=== PATIENT | female | born 1985 | race Caucasian/White ===

== ENCOUNTER 2019-03-02 17:22 | Emergency (ER) | payer BC ==
[~2019-03-02] VITALS: Ht 180.3 cm; Wt 113.4 kg
--- OUTSIDE RECORDS SUMMARY | ~2019-03-02 | XMS | Encounter Summary ---
Demographics + + + | Address | [address] | | | [place] [address] | + + + | Home Phone | | + + + | Preferred Language | Unknown | + + + | Marital Status | Single | + + + | Roman Catholic Affiliation | NRP | + + + | Race | White | + + + | Ethnic Group | Not or | + + + Author + + + | Author | [facility] | + + + | Organization | [facility] | + + + | Address | Unknown | + + + | Phone | Unavailable | + + + Support + + +---------+ + | Name | Relationship | Address | Phone | + + +---------+ + | Lester Wells | ECON | Unknown | | + + +---------+ + Care Team Providers + +------+ + | Care Glory Hole Tender Name | Role | Phone | + +------+ + | Sanaz Carney PA-C | PCP | | + +------+ + Encounter Details +--------+ + + + + | Date | Type | Department | Care Team | Description | +--------+ + + + + | 02/15/ | Procedure | [facility] | | | | 2018 | Pass | OP LOC [address] [facility] | | | | | | [place], [place] | | | | | | [address] | | | +--------+ + + + + Social History + +-------+ +--------+------+ | Tobacco Use | Types | Packs/Day | Years | Date | | | | | Used | | + +-------+ +--------+------+ | Never Smoker | | | | | + +-------+ +--------+------+ + +---+---+---+ | Smokeless Tobacco: | | | | | Never Used | | | | + +---+---+---+ + + +---------+ + | Alcohol Use | Drinks/Week | oz/Week | Comments | + + +---------+ + | Never | | | | + + +---------+ + + + + + | Alcohol Habits | Answer | Date Recorded | + + + + | How often do you have a drink containing | Never | 12/29/2018 | | alcohol? | | | + + + + | How many drinks containing alcohol do you | Not asked | | | have on a typical day when you are | | | | drinking? | | | + + + + | How often do you have six or more drinks on | Not asked | | | one occasion? | | | + + + + + + + | Sex Assigned at | Date Recorded | | | | + + + | Not on file | | + + + + + + + | Job Start Date | Occupation | Industry | + + + + | Not on file | Not on file | Not on file | + + + + + + + + | Travel History | Travel Start | Travel End | + + + + + + | No recent travel history available. | + + documented as of this encounter Plan of Treatment +--------+---------+ + + + | Date | Type | Specialty | Care Team | Description | +--------+---------+ + + + | 03/15/ | Office | Neurological Surgery | Sukumar Almanza, | | | 2018 | Visit | | [place] | | | | | | [place], [place] | | | | | | [address] | | | | | | | | +--------+---------+ + + + documented as of this encounter Visit Diagnoses Not on filedocumented in this encounter"
--- OUTSIDE RECORDS SUMMARY | ~2019-03-02 | XMS | Encounter Summary ---
Demographics + + + | Address | [address] | | | [place] [address] | + + + | Home Phone | | + + + | Preferred Language | Unknown | + + + | Marital Status | Single | + + + | Holiness Affiliation | NRP | + + + [...] Team Providers + +------+ + | Care Litigation Partner Name | Role | Phone | + +------+ + | No Pcp Per Patient | PCP | Unavailable | + +------+ + Encounter Details +--------+ + + + + | Date | Type | Department | Care Team | Description | +--------+ + + + + | 02/11/ | Document-Sc | [facility] | Ethan Roach MD | | | 2019 | anned | [facility] [address] | [address] | | | | | [address] | [address] | | | | | [address] | [place] [address] | | | | | [place], [place] | [phone] | | | | | [address] | | | | | | [phone] | | | +--------+ + + + [...] [address] | | | | | | [place], [place] | | | | | | [address] | | | | | | | | +--------+---------+ + + + documented as of this encounter Procedures + +--------+ + + + | Procedure Name | Priori | Date/Time | Associated Diagnosis | Comments | | | ty | | | | + +--------+ + + + | LAB REPORTS | | 02/05/2019 | | Results for this | | | | 12:00 AM | | procedure are in the | | | | PDT | | results section. | + +--------+ + + + documented in this encounter Results LAB REPORTS (02/05/2019 12:00 AM PDT) + + + | Narrative | Performed At | + + + | | | + + + documented in this encounter Visit Diagnoses Not on filedocumented in this encounter"
--- OUTSIDE RECORDS SUMMARY | ~2019-03-02 | XMS | Encounter Summary ---
Demographics + + + | Address | [address] | | | [place] [address] | + + + | Home Phone | | + + + | Preferred Language | Unknown | + + + | Marital Status | Single | + + + | Faith Affiliation | NRP | + + + [...] Team Providers + +------+ + | Care Funeral Pre Arrangement Specialist Name | Role | Phone | + +------+ + | No Pcp Per Patient | PCP | Unavailable | + +------+ + Reason for Referral Consult to [place] (Routine) + +--------+ + + + + | Status | Reason | Specialty | Diagnoses / | Referred By | Referred To | | | | | Procedures | Contact | Contact | + +--------+ + + + + | Authorized | | Neurological | Diagnoses | Ethan Roach | [facility] | | | | Surgery | Lumbar | [facility] [address] | Neurosurgery | | | | | radiculopath | [address] | [address] | | | | | y, right | [address] | [address] | | | | | Left lumbar | [facility] [address] | | | | | radiculopath | [place] [address] | [place], [place] | | | | | y Lumbar | Phone: | [phone] | | | | | degenerative | [phone] | Phone: | | | | | disc | | [phone] | | | | | disease | | Fax: | | | | | Spinal | | [phone] | | | | | stenosis of | | | | | | | lumbar | | | | | | | region | | | | | | | without | | | | | | | neurogenic | | | | | | | claudication | | | | | | | Lumbar | | | | | | | disc | | | | | | | herniation | | | | | | | S/P lumbar | | | | | | | discectomy | | | | | | | Procedures | | | | | | | REQUEST TO | | | | | | | SURGERY | | | | | | | ELECTROTHERAPIST | | | | | | | LA LUMBAR | | | | | | | SPINE | | | | | | | FUSION,ANTER | | | | | | | APPRCH LA | | | | | | | INSERT | | | | | | | INTERBODY | | | | | | | BIOMECH | | | | | | | DEV,TO | | | | | | | INTERVERTEBR | | | | | | | AL DISC | | | | | | | SPACE LA | | | | | | | LAMINEC/FACE | | | | | | | TECT/FORAMIN | | | | | | | ,LUMBAR LA | | | | | | | REDO EXCIS | | | | | | | LUMBAR DISK | | | | | | | LA SPIN | | | | | | | BONE | | | | | | | ALLOGRFT | | | | | | | MORSELIZED | | | + +--------+ + + + + Reason for Visit + + + | Reason | Comments | + + + | Follow-up visit | lumbar | + + + Consultation (Routine) +--------+--------+ + + + + | Status | Reason | Specialty | Diagnoses / | Referred By | Referred To | | | | | Procedures | Contact | Contact | +--------+--------+ + + + + | Closed | | Neurological | Diagnoses | Jayjay | [facility] | | | | Surgery | | Merrick Duncan, | Neurosurgery | | | | | Intervertebr | [address] | [address] | | | | | al disc | [facility] | [address] | | | | | disorders | & Fractur | [address] | | | | | with | [address] | [place] | | | | | radiculopath | [address] | [address] | | | | | y, lumbar | [place], | Phone: | | | | | region | [place] [address] | [phone] | | | | | Spondylosis | Phone: | Fax: | | | | | without | [phone] | [phone] | | | | | myelopathy | Fax: | | | | | | or | [phone] | | | | | | radiculopath | | | | | | | y, lumbar | | | | | | | region | | | +--------+--------+ + + + + Encounter Details +--------+---------+ + + + | Date | Type | Department | Care Team | Description | +--------+---------+ + + + | 12/29/ | Office | [facility] | Ethan Roach MD | Lumbar | | 2019 | Visit | [facility]surgery [facility] | [address] | radiculopathy, right | | | | [address] | [address] | (Primary Dx); Left | | | | [address] | [place] [address] | lumbar | | | | [place], [place] | [phone] | radiculopathy; | | | | [address] | | Lumbar degenerative | | | | [phone] | | disc disease; Spinal | | | | | | stenosis of lumbar | | | | | | region without | | | | | | neurogenic | | | | | | claudication; Lumbar | | | | | | disc herniation; | | | | | | S/P lumbar | | | | | | discectomy x 2 | +--------+---------+ + + + Social History + +-------+ [...] + + documented as of this encounter Last Filed Vital Signs + + + + + | Vital Sign | Reading | Time Taken | Comments | + + + + + | Blood Pressure | 145/84 | 12/29/2018 11:21 AM | | | | | PDT | | + + + + + | Pulse | 74 | 12/29/2018 11:21 AM | | | | | PDT | | + + + + + | Temperature | 36.9 C (98.4 F) | 12/29/2018 11:21 AM | | | | | PDT | | + + + + + | Respiratory Rate | - | - | | + + + + + | Oxygen Saturation | 98% | 12/29/2018 11:21 AM | | | | | PDT | | + + + + + | Inhaled Oxygen | - | - | | | Concentration | | | | + + + + + | Weight | 114 kg (251 lb 5.2 | 12/29/2018 11:21 AM | | | | oz) | PDT | | + + + + + | Height | 182.9 cm (6') | 12/29/2018 11:21 AM | | | | | PDT | | + + + + + | Body Mass Index | 34.09 | 12/29/2018 11:21 AM | | | | | PDT | | + + + + + documented in this encounter Progress Notes Ethan Roach MD - 12/29/2018 11:15 AM PDTFormatting of this note might be 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 Ethan Roach MD [facility] [address] [address] NEUROSURGERY HISTORY AND PHYSICAL EXAMINATION CHIEF COMPLAINT: Follow-up visit (lumbar) REFERRING PROVIDER: Ethan Roach MD HISTORY OF PRESENT ILLNESS: The patient is a 33 y.o. female with the complaint of back and bilateral leg pain symptoms that began in 2014. She had two surgeries fairly soon together for right leg symptoms. Thi s improved her right leg but she still has pain, numbness and weakness since that last opera tion. Over the last year, she has noticed progressive left leg symptoms. The patient descri bes pain down the buttock on the left and back pain. The symptoms have been gradually worsening. She rates the pain as moderate. The symptoms ar e continuous. She describes the pain as shooting, crushing, aching and throbbing. The patient describes leg symptoms that occur on both sides but worse on the left. The leg symptoms account for 50% of her symptoms. The leg symptoms are constant, and the symptoms tr noah from the back to the posterolateral leg and down to the foot. The patient also describe s numbness of the legs, weakness of the legs and foot drop. The patient does not report any change in bowel or bladder function recently. Her symptoms improve with rest, changing positions and kneeling. Her symptoms worsen with sitting, running and twisting. She has tried PT, NSAIDS and Injections. The patient is not currently taking opioids. These measures used to work but are now failing. PAST MEDICAL HISTORY: Past Medical History: Diagnosis Date BP (high blood pressure) PAST SURGICAL HISTORY: Past Surgical History Procedure Laterality Date Lumbar discectomy 06/2015 L5-S1 [facility] Back surgery CURRENT MEDICATIONS: Current Outpatient Medications Medication Sig buPROPion SR 150 mg oral tablet sustained-release 12 hr Take 1 tablet by mouth once raul ly. ergocalciferol 50,000 unit oral capsule Take 50,000 Units by mouth every seven days. lidocaine-prilocaine 2.5-2.5 % topical cream phentermine 37.5 mg oral capsule Take 1 capsule by mouth once daily. topiramate 25 mg oral tablet Take 25 mg by mouth once daily. No current facility-administered medications for this visit. ALLERGIES: Allergies Allergen Reactions Sulfa (Sulfonamide Antibiotics) Rash SOCIAL HISTORY: Social History Tobacco Use Smoking status: Never Smoker Smokeless tobacco: Never Used Substance Use Topics Alcohol use: Never Frequency: Never FAMILY HISTORY: Family History Problem Relation Hypertension Father Heart Disease Father REVIEW OF SYSTEMS: Constitutional: Positive for malaise/fatigue. HENT: Negative. Eyes: Wear glasses Respiratory: Negative. Cardiovascular: Negative. Gastrointestinal: Negative. Genitourinary: Negative. Musculoskeletal: Negative. Skin: Negative. Neurological: Positive for tingling and headaches. Numbness, muscle twitching, muscle shrinkage, problems walking Endo/Heme/Allergies: Negative. Psychiatric/Behavioral: Positive for depression. PHYSICAL EXAMINATION: Blood pressure 145/84, pulse 74, temperature 36.9 C (98.4 F), height 1.829 m (6'), weig ht 114 kg (251 lb 5.2 oz), SpO2 98 %. Body mass index is 34.09 kg/m. GENERAL: Yolanda James is in no acute distress with unlabored respirations. The patient julian s appear uncomfortable throughout the exam today. HEENT: Head: Normocephalic/atraumatic with no areas of recent trauma. Eyes: Normal sclerae without icterus. Ears: No drainage or tenderness. Nasopharnyx: Clear without drainage. Oropharnyx: Clear without erythema. NECK (ANTERIOR): Supple and without palpable masses. CHEST: Clear to ausculation without crackles or wheeze. HEART: Regular rate and rhythm without murmurs. ABDOMEN: Soft, non-tender, non-distended, and without palpable masses. The patient is not o bese. SPINE: There is no tenderness of there cervical or thoracic spine. The lumbar spine shows there is tenderness in the midline of the L4-S1 levels. To palpation , there is no significant myofascial tenderness. Her midline scar is well healed. There is no significant pain to provacative testing of the SI joint. There is no major deformity noted. EXTREMITIES: No cyanosis, clubbing, or edema. Distal pulses are palpable. NEUROLOGICAL EXAM: MENTAL STATUS: The patient is awake, alert, and oriented. She follows simple and complex commands. Her speech is fluent, she comprehends speech well, and she repeats well. She has no apparent deficits with short or termite control service representative memory. CRANIAL NERVES: II: Acuity is intact. Pearson are full to confrontation. III, IV, : The pupils are reactive. Extraocular movements are intact. No ptosis is note d. V: Facial sensation is intact and symmetric. VII: Facial movements are symmetric. VIII: Hearing is intact bilaterally. IX, X: The uvula and palate move appropriately. XI: Shrug is equal bilaterally. XII: Tongue protrusion is midline. MOTOR EXAM: (5 IS NORMAL) * Indicates pain limited MUSCLE/ MOVEMENT: RIGHT LEFT Deltoids 5 5 Biceps 5 5 Triceps 5 5 Wrist Flexion 5 5 Wrist Extension 5 5 Median Intrinsics 5 5 Ulnar Intrinsics 5 5 Outpatient Receptionist Strength 5 5 Hip Flexion 5 5 Hip Extension 5 5 Knee Flexion 5 5 Knee Extension 5 5 Dorsiflexion 5 4 Extensor Hallicus Longus 5 4 Plantarflexion 4 5 SENSORY EXAM: Sensory exam shows diminished sensation to light touch over the lateral lower leg and dorsa l and plantar foot. REFLEXES: (2 OR 2+ IS NORMAL) REFLEX: RIGHT LEFT BICEPS 2 2 BRACHIORADIALIS 2 2 TRICEPS 2 2 PATELLAR 2 2 ACHILLES 1 2 HARRINGTON'S Absent Absent PLANTAR Down Down GAIT: Gait is steady. TEST AND RADIOGRAPHIC REVIEW: The patient's imaging was reviewed in detail with the patient today during the visit. The M RI from 2019 shows L4-5 stenosis from a disc herniation eccentric to the left. At L5-S1, th ere are postoperative changes but S1 remains compressed. Severe DDD is present Lumbar x-rays show severe degenerative disc disease at L5-S1. ASSESSMENT: NEUROSURGICAL DIAGNOSES: 1. Lumbar radiculopathy, right 2. Left lumbar radiculopathy 3. Lumbar degenerative disc disease 4. Spinal stenosis of lumbar region without neurogenic claudication 5. Lumbar disc herniation 6. S/P lumbar discectomy x 2 GENERAL DIAGNOSES: Past Medical History: Diagnosis Date BP (high blood pressure) PLAN: Yolanda James presented today, and we went over in great detail her neurologic problems. The patient has failed prior surgery at L5-S1 with continued S1 radiculopathy. She also mcgraw s newer left radiculopathy from L4-5. The patient has progressive symptoms despite non-opera tive measures. I had a lengthy discussion with the patient about her options for care including surgical a nd non-surgical options. In discussing the surgical options, we discussed in detail the patient's options for an ALI F at L5-S1 with anterior instrumentation with a L4-5 decompression on the left and L5-S1 red o decompression on the right. The indication for fusion is two prior operations and severe DDD at L5-S1. The patient understands that in most instances the recovery from surgery can be lengthy and sometimes difficult. We discussed the risks, alternatives, and benefits to surgical intervention with Ms. James. These risks included but were not limited to , stroke, heart attack, numbness, weakne ss, paralysis, failure of fusion, failure of hardware, subsidence, adjacent segment degenera tion, cerebrospinal fluid leak, bleeding, infection, injury to surrounding tissues and organ s, injury from positioning, injury to the nerves, difficulty with breathing, difficulty with swallowing, difficulty with voice change, and need for additional surgery. Surgical options were discussed and the technique to be employed was described in detail to her. All her questions were answered. We discussed that the goal of the surgery is to prevent progression of her disease, but it is not considered a cure. We also discussed that although some patients may obtain 100% sym ptom relief, it is realistic to anticipate that some symptoms will continue postoperatively despite a successful surgery. We also discussed that there is no guarantee that surgery will provide improvement in her c ondition, and indeed may even worsen the symptoms. We also discussed that in the course of the procedure the operative plan may be altered to include more, less, or different levels d epending upon findings in order to provide her with the best possible outcome. I am prescribing a brace before surgery to improve her stability now to support her weak mu scles and to reduce pain by restricting mobility. The patient would like to be considered for surgery as discussed and would like us to seek authorization and clearance for the operation.. 12/29/2018 12:20 PM Janis Garcia MA - 10/2018 11:15 AM PDTReview of Systems Constitutional: Positive for malaise/fatigue. HENT: Negative. Eyes: Wear glasses Respiratory: Negative. Cardiovascular: Negative. Gastrointestinal: Negative. Genitourinary: Negative. Musculoskeletal: Negative. Skin: Negative. Neurological: Positive for tingling and headaches. Numbness, muscle twitching, muscle shrinkage, problems walking Endo/Heme/Allergies: Negative. Psychiatric/Behavioral: Positive for depression. documented in this enco unter Plan of Treatment +--------+---------+ + + + | Date | Type | Specialty | Care Team | Description | +--------+---------+ + + + | 03/15/ | Office | Neurological Surgery | Sukumar Almanza, | | | 2018 | Visit | | [place] [address] | | | | | | [place], [place] | | | | | | [address] | | | | | | | | +--------+---------+ + + + documented as of this encounter Procedures + +--------+ + + + | Procedure Name | Priori | Date/Time | Associated Diagnosis | Comments | | | ty | | | | + +--------+ + + + | OUTSIDE CARDIOLOGY | | 01/27/2019 | | Results for this | | | | 12:00 AM | | procedure are in the | | | | PDT | | results section. | + +--------+ + + + documented in this encounter Results OUTSIDE CARDIOLOGY (01/27/2019 12:00 AM PDT) + + + | Narrative | Performed At | + + + | | | + + + documented in this encounter Visit Diagnoses + + | Diagnosis | + + | Lumbar radiculopathy, right - Primary | + + | Left lumbar radiculopathy Thoracic or lumbosacral neuritis or radiculitis, | | unspecified | + + | Lumbar degenerative disc disease Degeneration of lumbar or lumbosacral intervertebral | | disc | + + | Spinal stenosis of lumbar region without neurogenic claudication Spinal stenosis, | | lumbar region, without neurogenic claudication | + + | Lumbar disc herniation Displacement of lumbar intervertebral disc without myelopathy | + + | S/P lumbar discectomy x 2 Other postprocedural status | + + documented in this encounter"
--- OUTSIDE RECORDS SUMMARY | ~2019-03-02 | XMS | Encounter Summary ---
Demographics + + + | Address | [address] | | | [place] [address] | + + + | Home Phone | | + + + | Preferred Language | Unknown | + + + | Marital Status | Single | + + + | Mosque Affiliation | NRP | + + + [...] Team Providers + +------+ + | Care Advertising Dispatch Clerks Supervisor Name | Role | Phone | + +------+ + PCP | Unavailable | + +------+ + Encounter Details +--------+ + + + + | Date | Type | Department | Care Team | Description | +--------+ + + + + | 12/22/ | Mobile Paramedical Examiner | [facility] | Ginna Marcos | Back pain, | | 2019 | | [facility] | [place] [address] | unspecified back | | | | [address] | [address] | location, | | | | [address] | [place] [address] | unspecified back | | | | [place], [place] | [phone] | pain laterality, | | | | [address] | | unspecified | | | | [phone] | | chronicity (Primary | | | | | | Dx) | +--------+ + + + + Social History + +-------+ +--------+------+ | Tobacco Use | Types | Packs/Day | Years | Date | | | | | Used | | + +-------+ +--------+------+ | Never Assessed | | | | | + +-------+ +--------+------+ + + + | Sex Assigned at [...] | | 2018 | Visit | | [facility] [address] | | | | | | [place], [place] | | | | | | [address] | | | | | | | | +--------+---------+ + + + documented as of this encounter Results X-RAY SPINE LUMBOSACRAL 4 VIEWS (12/29/2018 10:57 AM PDT) + + | Specimen | + + | | + + + + + | Narrative | Performed At | + + + | EXAM DESCRIPTION: X-RAY SPINE LUMBOSACRAL 4 VIEWS CLINICAL | [facility] | | HISTORY: Back pain. COMPARISON: None. TECHNIQUE: AP view. | RADIOLOGY VOICE | | Three lateral views obtained in neutral, flexion and extension. | RECOGNITION | | FINDINGS: Alignment is normal. No instability. No fracture line is | | | seen. Vertebral body heights are normal. There is moderate to severe | | | loss of intervertebral disc height at L5-S1. There is facet | | | arthropathy at L4-5 and L5-S1. IMPRESSION: 1. No fracture, | | | subluxation or instability. 2. Degenerative disc disease and facet | | | arthropathy predominantly at L5-S1. Signed By: Conner Olvera | | | On 12/29/2018 11:26:57 | | + + + + ---------+ | Procedure Note | + ---------+ | Service Account, Radiant Res In Interface - 12/29/2018 11:30 AM PDT EXAM | | DESCRIPTION:X-RAY SPINE LUMBOSACRAL 4 VIEWS CLINICAL HISTORY:Back pain. COMPARISON:None. | | TECHNIQUE:AP view. Three lateral views obtained in neutral, flexion and extension. | | FINDINGS:Alignment is normal. No instability. No fracture line is seen. Vertebral body | | heights are normal.There is moderate to severe loss of intervertebral disc height at | | L5-S1. There is facet arthropathyat L4-5 and L5-S1. IMPRESSION:1. No fracture, | | subluxation or instability.2. Degenerative disc disease and facet arthropathy | | predominantly at L5-S1. Signed By: Conner Olvera On 12/29/2018 11:26:57 | | | |TECHNIQUE: | |AP view. Three lateral views obtained in neutral, flexion and extension. | | | |FINDINGS: | |Alignment is normal. No instability. No fracture line is seen. Vertebral body heights are n ormal. | |There is moderate to severe loss of intervertebral disc height at L5-S1. There is facet art hropathy | |at L4-5 and L5-S1. | | | |IMPRESSION: | |1. No fracture, subluxation or instability. | |2. Degenerative disc disease and facet arthropathy predominantly at L5-S1. | | | | | |Signed By: Conner Olvera On 12/29/2018 11:26:57 | + ---------+ + + + + + | Performing | Address | City/State/Zipcode | Phone Number | | Organization | | | | + + + + + | [facility] | [address] | [place] [address] | [phone] | | VOICE RECOGNITION | | | | + + + + + documented in this encounter Visit Diagnoses + + | Diagnosis | + + | Back pain, unspecified back location, unspecified back pain laterality, unspecified | | chronicity - Primary | + + documented in this encounter"
--- OUTSIDE RECORDS SUMMARY | ~2019-03-02 | XMS | Encounter Summary ---
Demographics + + + | Address | [address] | | | [place] [address] | + + + | Home Phone | | + + + | Preferred Language | Unknown | + + + | Marital Status | Single | + + + | Denominational Affiliation | NRP | + + + [...] Team Providers + +------+ + | Care Rug Underlay Machine Operator Name | Role | Phone | + +------+ + | Sanaz Carney PA-C | PCP | | + +------+ + Encounter Details +--------+ + + + + | Date | Type | Department | Care Team | Description | +--------+ + + + + | 02/21/ | MyChart | [facility] | Ethan Roach MD | RE: Nerve pain | | 2019 | Encounter | [facility] | [address] | | | | | [address] | [address] | | | | | [address] | [place] [address] | | | | | [place], [place] | [phone] | | | | | [address] | | | | | | [phone] | | | +--------+ + + + [...] + + documented as of this encounter Functional Status + + + + | Functional Status | Response | Date of Assessment | + + + + | Because of a physical, mental, or emotional | No | 02/17/2019 | | condition, do you have serious difficulty | | | | doing errands alone such as visiting the | | | | doctor? | | | + + + + + + + + | Cognitive Status | Response | Date of Assessment | + + + + | Because of a physical, mental, or emotional | No | 02/17/2019 | | condition, do you have serious difficulty | | | | concentrating, remembering, or making | | | | decisions? (5 years old or older) | | | + + + + documented as of this encounter Plan of Treatment +--------+---------+ + + + | Date | Type | Specialty | Care Team | Description | +--------+---------+ + + + | 03/15/ | Office | Neurological Surgery | Sukumar Almanza, | | | 2018 | Visit | | [address] | | | | | | [place], [place] | | | | | | [address] | | | | | | | | +--------+---------+ + + + documented as of this encounter Visit Diagnoses + + | Diagnosis | + + | S/P lumbar fusion - Primary Arthrodesis status | + + documented in this encounter"
--- OUTSIDE RECORDS SUMMARY | ~2019-03-02 | XMS | Encounter Summary ---
Demographics + + + | Address | [address] | | | [place] [address] | + + + | Home Phone | | + + + | Preferred Language | Unknown | + + + | Marital Status | Single | + + + | Adventist Affiliation | NRP | + + + [...] Team Providers + +------+ + | Care Handbag Stitcher Name | Role | Phone | + +------+ + PCP | Unavailable | + +------+ + Encounter Details +--------+ + + + + | Date | Type | Department | Care Team | Description | +--------+ + + + + | 12/04/ | Document-Sc | [facility] | Ethan Roach MD | | | 2019 | anned | [facility] | [address] | | | | | [address] | [address] | | | | | [address] | [place] [address] | | | | | [place], [place] | [phone] | | | | | [address] | | | | | | [phone] | | | +--------+ + + + [...] | | 2018 | Visit | | [facility] [address] | | | | | | [place], [place] | | | | | | [address] | | | | | | | | +--------+---------+ + + + documented as of this encounter Visit Diagnoses Not on filedocumented in this encounter"
--- OUTSIDE RECORDS SUMMARY | ~2019-03-02 | XMS | Encounter Summary ---
Demographics + + + | Address | [address] | | | [place] [address] | + + + | Home Phone | | + + + | Preferred Language | Unknown | + + + | Marital Status | Single | + + + | Bahai Affiliation | NRP | + + + [...] Team Providers + +------+ + | Care Program Evaluation Consultant Name | Role | Phone | + +------+ + PCP | Unavailable | + +------+ + Encounter Details +--------+ + + + + | Date | Type | Department | Care Team | Description | +--------+ + + + + | 11/25/ | Document-Sc | [facility] | Ethan Roach MD | | | 2019 | anned | [facility] | [address] | | | | | [address] | [address] | | | | | [address] | [place] [address] | | | | | [place], [place] | [phone] | | | | | [address] | | | | | | [phone] | | | +--------+ + + + [...] [address] | | | | | | [place], [place] | | | | | | [address] | | | | | | | | +--------+---------+ + + + documented as of this encounter Visit Diagnoses Not on filedocumented in this encounter"
--- OUTSIDE RECORDS SUMMARY | ~2019-03-02 | XMS | Encounter Summary ---
Demographics + + + | Address | [address] | | | [place] [address] | + + + | Home Phone | | + + + | Preferred Language | Unknown | + + + | Marital Status | Single | + + + | Quaker Affiliation | NRP | + + + [...] Team Providers + +------+ + | Care Refueling Rampman Name | Role | Phone | + +------+ + PCP | Unavailable | + +------+ + Encounter Details +--------+ + + + + | Date | Type | Department | Care Team | Description | +--------+ + + + + | 12/22/ | Electronics Installer | [facility] | Ginna Marcos | Back pain, | | 2019 | | [facility] | [address] [place] | unspecified back | | | | [address] | [address] | location, | | | | [address] | [place] [address] | unspecified back | | | | [place], [place] | [phone] | pain laterality, | | | | [address] | | unspecified | | | | [phone] | | chronicity (Primary | | | [...] [address] | | | | | | [place], [place] | | | | | | [address] | | | | | | | [...] RADIOLOGY | [address] | [place] [address] | [phone] | | VOICE RECOGNITION | | | | + + + + + documented in this encounter Visit Diagnoses + + | Diagnosis | + + | Back pain, unspecified back location, unspecified back pain laterality, unspecified | | chronicity - Primary | + + documented in this encounter"
--- OUTSIDE RECORDS SUMMARY | ~2019-03-02 | XMS | Encounter Summary ---
Demographics + + + | Address | [address] | | | [place] [address] | + + + | Home Phone | | + + + | Preferred Language | Unknown | + + + | Marital Status | Single | + + + | Buddhism Affiliation | NRP | + + + [...] Team Providers + +------+ + | Care Sculpture Instructor Name | Role | Phone | + +------+ + | Sanaz Carney PA-C | PCP | | + +------+ + Reason for Visit AUTH/CERT +--------+--------+ + + + + | Status | Reason | Specialty | Diagnoses / | Referred By | Referred To | | | | | Procedures | Contact | Contact | +--------+--------+ + + + + | | | | | | | +--------+--------+ + + + + Encounter Details +--------+ + + + + | Date | Type | Department | Care Team | Description | +--------+ + + + + | 02/15/ | Anesthesia | [facility] | [place], | | | 2018 | Event | OP LOC [address] | [place] [address] | | | | | [address] [place], [place] | [place] [address] | | | | | [address] | | | +--------+ + + + + Anesthesia Record + + + + + | Procedure Name | Responsible | Anesthesia Start | Anesthesia Stop Time | | | Anesthesiologist | Time | | + + + + + | ANTERIOR L5-S1 | Josefa Wynn MD | 02/15/19 0734 | 02/15/19 1151 | | INTERBODY | | | | | FUSION/LEFT L4-5, | | | | | RIGHT L5-S1 | | | | | DECOMPRESSIONS (N/A | | | | | Abdomen) | | | | + + + + + +----+---+ + + | Da | T | Event | Comment | | te | i | | | | | m | | | | | e | | | +----+---+ + + | 09 | 0 | Pt. Check | Prior to anesthesia start, pt. Identified, examined, chart | | /2 | 7 | | reviewed, PARQ held, anesthetic plan made or approved by | | 3/ | 0 | | attending anesthesiologist. NPO status confirmed as appropriate | | 20 | 7 | | for procedure Preoperative evaluation: unchanged | | 19 | | | | +----+---+ + + | | 0 | An Start | | | | 7 | Data | | | | 1 | | | | | 1 | | | +----+---+ + + | | 0 | Eq Check | Anesthesia machine checked Equipment verified | | | 7 | | | | | 2 | | | | | 0 | | | +----+---+ + + | | 0 | An Start | | | | 7 | | | | | 3 | | | | | 4 | | | +----+---+ + + | | 0 | ETT | | | | 7 | | | | | 4 | | | | | 0 | | | +----+---+ + + | | 0 | Ready | | | | 7 | | | | | 4 | | | | | 1 | | | +----+---+ + + | | 0 | Abx | | | | 7 | Administere | | | | 5 | d | | | | 6 | | | +----+---+ + + | | 0 | Preprocedur | Pt ID confirmed, informed consent obtained, insertion site | | | 8 | e Checklist | marked, equipment available | | | 0 | | | | | 5 | | | +----+---+ + + | | 0 | Incision | | | | 8 | | | | | 0 | | | | | 6 | | | +----+---+ + + | | 1 | Surgery end | | | | 1 | | | | | 4 | | | | | 1 | | | +----+---+ + + | | 1 | An Extubate | Neuromuscular function Intact. Pharynx suctioned. Patient obeys | | | 1 | | commands. Adequate pulmonary mechanics. | | | 4 | | | | | 6 | | | +----+---+ + + | | 1 | an stop | | | | 1 | data | | | | 5 | | | | | 1 | | | +----+---+ + + | | 1 | Anesthesia | | | | 1 | End | | | | 5 | | | | | 1 | | | +----+---+ + + | | 1 | PACU Rpt | | | | 1 | Given | | | | 5 | | | | | 2 | | | +----+---+ + + | | 1 | Post-Op | | | | 3 | Page | | | | 3 | | | | | 5 | | | +----+---+ + + +------+ | Meds | +------+ + + + | Name | Total | + + + | metoclopramide | 10 mg | + + + | midazolam 5mg/mL | 5 mg | + + + | fentaNYL | 175 mcg | + + + | lidocaine 2% | 4 mL | + + + | propofol | 200 mg | + + + | rocuronium | 50 mg | + + + | dexamethasone | 4 mg | + + + | ondansetron | 4 mg | + + + | ceFAZolin IV 3 gram in 0.9% | 3 g | | sodium chloride | | + + + | lactated ringers IV | 1,900 mL | + + + + + | Name | + + | O2 FR Avance (Total Liters) | + + | N2O FR Avance (l/min) | + + | Air FR Avance (l/min) | + + | Insp Wayne | + + | Et Wayne | + + | Insp Sevo | + + | Et Sevo | + + | EtN2O % | + + | Insp N2O % | + + + + | No blood administrations on file. | + + +--------+ + + + | Type | Details | Placement | Removal | +--------+ + + + | Incisi | 02/15/19; Dr. Roach ; (midline); | 02/15/19 0000 by | | | on | Anterior, Midline; abdomen | Yolanda Herrera RN | | +--------+ + + + | Incisi | 02/15/19; Dr. Roach ; Right; Lower, | 02/15/19 0000 by | | | on | Posterior; back | Yolanda Herrera RN | | +--------+ + + + | Urethr | 02/15/19; Isaiah Feliz RN ; 1; | 02/15/19 0000 by | 02/15/19 1155 by | | al | [place]; 16 Fr.; 10 mL; 02/15/19; | Yloanda Herrera RN | Yolanda Herrera RN | | Cathet | 1155 | | | | er | | | | +--------+ + + + | Incisi | 02/15/19; Dr. Roach; Left; | 02/15/19 0000 by | 02/15/19 1155 by | | on | Posterior, Lower; back; 02/15/19; | Yolanda Herrera RN | Yolanda Herrera RN | | | 1155 | | | +--------+ + + + | Periph | 02/15/19; 0658; Left; Hand; 18 g; | 02/15/19 0658 by | 02/16/19 2100 by | | eral | Positive; 02/16/19; 2099; Other | Lyn Dean, | Sara Roque RN | | IV | (Comment) (pt request, other IV | RN | | | | present) | | | +--------+ + + + | Periph | 02/15/19; 0700; Right; Hand; 20 | 02/15/19 0700 by | 02/17/19 1535 by | | eral | g; Positive; 02/17/19; 1535; Per | Lyn Dean, | John Martin RN | | IV | order | RN | | +--------+ + + + | ETT | 02/15/19; 0740 (created via | 02/15/19 0740 by | 02/15/19 1146 by | | | procedure documentation); 7; | Josefa Wynn MD | Josefa Wynn MD | | | Oral; Cuffed; 02/15/19; 1146 | | | +--------+ + + + documented in this encounter Social History + +-------+ +--------+------+ | Tobacco [...] | 2018 | Visit | | [facility] [address] | | | | | | [place], [place] | | | | | | [address] | | | | | | | | +--------+---------+ + + + documented as of this encounter Procedures + +--------+ + + + | Procedure Name | Priori | Date/Time | Associated Diagnosis | Comments | | | ty | | | | + +--------+ + + + | ANE ETT | Routin | 02/15/2019 | | | | | e | 7:54 AM | | | | | | PDT | | | + +--------+ + + + +---+--------+ | | | | | Proced | | | ure | | | Note - | | | | | | Wynn | | | , Josefa | | | Hang, | | | MD - | | | | | | 2018 | | | 7:54 | | | AM PDT | | | | | | AIRWAY | | | | | | MANAGE | | | MENT - | | | | | | ETTTim | | | e of | | | Placem | | | ent: | | | | | | 019 | | | 7:40 | | | AMIntu | | | bation | | | | | | Reason | | | : For | | | surgic | | | al | | | proced | | | urePos | | | itioni | | | ng: | | | Supine | | | Locati | | | on | | | Perfor | | | med:OR | | | | | | OXYGEN | | | ATIONP | | | atient | | | was | | | preoxy | | | genate | | | dGrade | | | : | | | Grade | | | 1 - | | | Ventil | | | ated | | | by | | | mask | | | Induct | | | ion:Ro | | | utine, | | | | | | withou | | | t | | | Cricoi | | | d | | | Pressu | | | reINTU | | | BATION | | | ATTEMP | | | T | | | 1Video | | | laryng | | | oscopy | | | : | | | Glides | | | copeIn | | | tubati | | | on | | | Adjunc | | | ts: w/ | | | | | | Stylet | | | Laryng | | | oscopi | | | c | | | View: | | | Grade | | | IETT | | | DETAIL | | | SETT | | | Type:S | | | tandar | | | d, | | | Hi-Lo | | | Cuffed | | | Intuba | | | tion | | | Type: | | | OralCu | | | ff | | | Status | | | : | | | Cuffed | | | Size: | | | 7ETT | | | secure | | | d with | | | | | | adhesi | | | ve | | | tapeDe | | | pth at | | | Lip: | | | 22 cm | | | Airway | | | Leak: | | | | | | NoCONF | | | IRMATI | | | ONNumb | | | er of | | | Attemp | | | ts: | | | 1Atrau | | | matic | | | placem | | | entPos | | | itive | | | for | | | EtCO2: | | | Wavefo | | | rm | | | capnog | | | raphyB | | | reath | | | Sounds | | | : | | | Bilate | | | ral | | | and | | | equalN | | | ARRATI | | | VEAtte | | | nding | | | was | | | physic | | | ally | | | presen | | | t for | | | the | | | critic | | | al | | | portio | | | ns of | | | the | | | proced | | | ure as | | | | | | descri | | | bed in | | | the | | | proced | | | ure | | | noteAt | | | tendin | | | g/Auth | | | orizin | | | g | | | Provid | | | er: | | | Josefa | | | Hang | | | Wynn | | | , | | | MDPerf | | | orming | | | | | | Provid | | | er: | | | Josefa | | | Hang | | | Tianna | | | , MD | +---+--------+ documented in this encounter Visit Diagnoses Not on filedocumented in this encounter Administered Medications + +--------+ +------+------+------+ | Medication Order | MAR | Action | Dose | Rate | Site | | | Action | Date | | | | + +--------+ +------+------+------+ | ceFAZolin IV 3 gram in 0.9% | Given | 02/16/20 | 3 g | | | | sodium chloride 3 g, | | 19 7:56 | | | | | intravenous, PREPROCEDURE ONCE | | AM PDT | | | | | (DISPENSE), 1 dose, Starting Mon | | | | | | | 02/15/19 at 0617, Until Mon | | | | | | | 02/15/19 at 0756 | | | | | | + +--------+ +------+------+------+ +---+---+ | | | +---+---+ + +-------+ +------+---+---+ | dexamethasone (DECADRON) | Given | 02/16/20 | 4 mg | | | | injection intravenous, | | 19 8:57 | | | | | INTRAPROCEDURE PRN, Starting Mon | | AM PDT | | | | | 02/15/19 at 0857, Until Mon | | | | | | | 02/15/19 at 1151 | | | | | | + +-------+ +------+---+---+ +---+---+ | | | +---+---+ + +-------+ +--------+---+---+ | fentaNYL (SUBLIMAZE) injection | Given | 02/16/20 | 25 mcg | | | | intravenous, INTRAPROCEDURE PRN, | | 19 11:36 | | | | | Starting 02/15/19 at 0744, | | AM PDT | | | | | Until 02/15/19 at 1151 | | | | | | + +-------+ +--------+---+---+ +-------+ +---------+---+---+ | Given | 02/16/20 | 50 mcg | | | | | 19 7:44 | | | | | | AM PDT | | | | +-------+ +---------+---+---+ | Given | 02/16/20 | 100 mcg | | | | | 19 7:38 | | | | | | AM PDT | | | | +-------+ +---------+---+---+ +---+---+ | | | +---+---+ + + + +---+---+---+ | lactated ringers IV 10 mL/hr, | given by | 02/16/20 | | | | | intravenous, PROCEDURE | | 19 11:51 | | | | | CONTINUOUS, Starting Fri02/15/19 | anesthes | AM PDT | | | | | at 0630, Until Fri02/15/19 at | iology | | | | | | 1359 | | | | | | + + + +---+---+---+ + + + + +---+ | given by anesthesiology | 02/16/20 | | | | | | 19 8:56 | | | | | | AM PDT | | | | + + + + +---+ | New Bag | 02/16/20 | 10 mL/hr | 10 mL/hr | | | | 19 7:01 | | | | | | AM PDT | | | | + + + + +---+ +---+---+ | | | +---+---+ + +-------+ +------+---+---+ | lidocaine (XYLOCAINE) 20 mg/mL | Given | 02/16/20 | 4 mL | | | | (2 %) injection INTRAPROCEDURE | | 19 7:39 | | | | | PRN, Starting 02/15/19 at | | AM PDT | | | | | 0739, Until Fri02/15/19 at 1151 | | | | | | + +-------+ +------+---+---+ +---+---+ | | | +---+---+ + +-------+ +-------+---+---+ | metoclopramide HCl (REGLAN) | Given | 02/16/20 | 10 mg | | | | injection intravenous, | | 19 7:34 | | | | | INTRAPROCEDURE PRN, Starting Mon | | AM PDT | | | | | 02/15/19 at 0734, Until Mon | | | | | | | 02/15/19 at 1151 | | | | | | + +-------+ +-------+---+---+ +---+---+ | | | +---+---+ + +-------+ +------+---+---+ | midazolam (PF) (VERSED) | Given | 02/16/20 | 1 mg | | | | injection intravenous, | | 19 7:37 | | | | | INTRAPROCEDURE PRN, Starting Mon | | AM PDT | | | | | 02/15/19 at 0734, Until Mon | | | | | | | 02/15/19 at 1151 | | | | | | + +-------+ +------+---+---+ +-------+ +------+---+---+ | Given | 02/16/20 | 4 mg | | | | | 19 7:34 | | | | | | AM PDT | | | | +-------+ +------+---+---+ +---+---+ | | | +---+---+ + +-------+ +------+---+---+ | ondansetron (ZOFRAN) injection | Given | 02/16/20 | 4 mg | | | | intravenous, INTRAPROCEDURE PRN, | | 19 11:30 | | | | | Starting Fri02/15/19 at 1130, | | AM PDT | | | | | Until Fri02/15/19 at 1151 | | | | | | + +-------+ +------+---+---+ +---+---+ | | | +---+---+ + +-------+ +--------+---+---+ | propofol (DIPRIVAN) injection | Given | 02/16/20 | 200 mg | | | | intravenous, INTRAPROCEDURE PRN, | | 19 7:39 | | | | | Starting Fri02/15/19 at 0739, | | AM PDT | | | | | Until Fri02/15/19 at 1151 | | | | | | + +-------+ +--------+---+---+ +---+---+ | | | +---+---+ + +-------+ +-------+---+---+ | Rocuronium injection syrg | Given | 02/16/20 | 20 mg | | | | intravenous, INTRAPROCEDURE PRN, | | 19 8:00 | | | | | Starting Fri02/15/19 at 0739, | | AM PDT | | | | | Until Fri02/15/19 at 1151 | | | | | | + +-------+ +-------+---+---+ +-------+ +-------+---+---+ | Given | 02/16/20 | 30 mg | | | | | 19 7:39 | | | | | | AM PDT | | | | +-------+ +-------+---+---+ +---+---+ | | | +---+---+ documented in this encounter"
--- OUTSIDE RECORDS SUMMARY | ~2019-03-02 | XMS | Encounter Summary ---
Demographics + + + | Address | [address] | | | [place] [address] | + + + | Home Phone | | + + + | Preferred Language | Unknown | + + + | Marital Status | Single | + + + | Taoism Affiliation | NRP | + + + [...] Team Providers + +------+ + | Care Medical Supply Technician Name | Role | Phone | + +------+ + | Sanaz Carney PA-C | PCP | | + +------+ + Encounter Details +--------+ + + + + | Date | Type | Department | Care Team | Description | +--------+ + + + + | 02/15/ | Procedure | [facility] | | | | 2018 | Pass | OP LOC [address] [facility] | | | | | | [place], [place] | | | | | | [address] | | | +--------+ + + + [...] [place] | | | | | | [address] | | | | | | | | +--------+---------+ + + + documented as of this encounter Visit Diagnoses Not on filedocumented in this encounter"
--- OUTSIDE RECORDS SUMMARY | ~2019-03-02 | XMS | Encounter Summary ---
Demographics + + + | Address | [address] | | | [place] [address] | + + + | Home Phone | | + + + | Preferred Language | Unknown | + + + | Marital Status | Single | + + + | Hindu Affiliation | NRP | + + + [...] Team Providers + +------+ + | Care Breaker Machine Operator Name | Role | Phone | + +------+ + | No Pcp Per Patient | PCP | Unavailable | + +------+ + Reason for Visit +--------+ + | Reason | Comments | +--------+ + | Preop | | +--------+ + Encounter Details +--------+ + + + + | Date | Type | Department | Care Team | Description | +--------+ + + + + | 02/11/ | Telephone | [facility] | Lynda Pepper, | Preop | | 2019 | | Preoperative | RN [address] | | | | | Assessment Clinic | [place] [address] | | | | | [address] | | | | | | [facility] [address] | | | | | | [place], [place] | | | | | | [address] | | | | | | [phone] | | | +--------+ + + + [...] [address] | | | | | | [place] | | | | | | [address] | | | | | | | | +--------+---------+ + + + documented as of this encounter Visit Diagnoses Not on filedocumented in this encounter"
--- OUTSIDE RECORDS SUMMARY | ~2019-03-02 | XMS | Encounter Summary ---
Demographics + + + | Address | [address] | | | [place] [address] | + + + | Home Phone | | + + + | Preferred Language | Unknown | + + + | Marital Status | Single | + + + | Temple Affiliation | NRP | + + + [...] Team Providers + +------+ + | Care Trichologist Name | Role | Phone | + +------+ + | No Pcp Per Patient | PCP | Unavailable | + +------+ + Reason for Visit + + + | Reason | Comments | + + + | Pre-op evaluation | | + + + Encounter Details +--------+ + + + + | Date | Type | Department | Care Team | Description | +--------+ + + + + | 02/11/ | Telephone | [facility] | Ethan Roach MD | Pre-op evaluation | | 2019 | | [facility] | [address] | | | | | [address] | [address] | | | | | [address] | [place] [address] | | | | | [place], [place] | [phone] | | | | | [address] | | | | | | [phone] | | | +--------+ + + + [...] [place] | | | | | | [address] | | | | | | | | +--------+---------+ + + + documented as of this encounter Visit Diagnoses Not on filedocumented in this encounter"
--- OUTSIDE RECORDS SUMMARY | ~2019-03-02 | XMS | Encounter Summary ---
Demographics + + + | Address | [address] | | | [place] [address] | + + + | Home Phone [...] Team Providers + +------+ + | Care Certified Registered Nurse Anesthetist Name | Role | Phone | + [...] | | | | Assessment Clinic | [place] [address] | | | | | [address] | | | | | | [facility] [address] | | | | | | [place], [place] | | | | | | [address] | | | | | | [phone] | | | +--------+ + + + [...] [place] | | | | | | [address] | | | | | | | | +--------+---------+ + + + documented as of this encounter Visit Diagnoses Not on filedocumented in this encounter"
--- OUTSIDE RECORDS SUMMARY | ~2019-03-02 | XMS | Encounter Summary ---
Demographics + + + | Address | [address] | | | [place] [address] | + + + | Home Phone | | + + + | Preferred Language | Unknown | + + + | Marital Status | Single | + + + | Buddhist Affiliation | NRP | + + + [...] Team Providers + +------+ + | Care Bulb Filler Name | Role | Phone | + [...] | | | | [address] | [place] [address] | | | | | [place], [place] | [phone] | | | | | [address] | | | | | | [phone] | | | +--------+ + + + [...] [place] | | | | | | [address] | | | | | | | | +--------+---------+ + + + documented as of this encounter Visit Diagnoses Not on filedocumented in this encounter"
--- OUTSIDE RECORDS SUMMARY | ~2019-03-02 | XMS | Encounter Summary ---
Demographics + + + | Address | [address] | | | [place] [address] | + + + | Home Phone | | + + + | Preferred Language | Unknown | + + + | Marital Status | Single | + + + | Yazdanism Affiliation | NRP | + + + [...] Team Providers + +------+ + | Care Lathe Tender Name | Role | Phone | + +------+ + | Sanaz Carney PA-C | PCP | | + +------+ + Encounter Details +--------+ + + + + | Date | Type | Department | Care Team | Description | +--------+ + + + + | 01/22/ | Telephone | [facility] | Ethan Roach MD | | | 2019 | | [facility] | [address] | | | | | [address] | [address] | | | | | [address] | [place] [address] | | | | | [place], [place] | [phone] | | | | | [address] | | | | | | [phone] | | | +--------+ + + + [...] | 2018 | Visit | | [address] [facility] [address] | | | | | | [place], [place] | | | | | | [address] | | | | | | | | +--------+---------+ + + + + +------+--------+ + + | Name | Type | Priori | Associated Diagnoses | Order Schedule | | | | ty | | | + +------+--------+ + + | BASIC METABOLIC SET | Lab | Routin | Pre-op exam | Expected: 01/27/2019 | | (NA, K, CL, TCO2, | | e | | (Approximate), | | BUN, CR, GLU, CA) | | | | Expires: 02/27/2020 | + +------+--------+ + + | CBC ONLY | Lab | Routin | Pre-op exam | Expected: 01/27/2019 | | | | e | | (Approximate), | | | | | | Expires: 02/27/2020 | + +------+--------+ + + | INR | Lab | Routin | Pre-op exam | Expected: 01/27/2019 | | | | e | | (Approximate), | | | | | | Expires: 02/27/2020 | + +------+--------+ + + | APTT (ACT. PART. | Lab | Routin | Pre-op exam | Expected: 01/27/2019 | | THROMBO TIME) | | e | | (Approximate), | | | | | | Expires: 02/27/2020 | + +------+--------+ + + | CULTURE, MRSA/MSSA | Lab | Routin | Pre-op exam | Ordered: 01/27/2019 | | SCREEN | | e | | | + +------+--------+ + + | 12 LEAD ECG | ECG | Routin | Pre-op exam | Ordered: 01/27/2019 | | | | e | | | + +------+--------+ + + documented as of this encounter Visit Diagnoses + + | Diagnosis | + + | Pre-op exam - Primary Preoperative examination, unspecified | + + documented in this encounter"
--- OUTSIDE RECORDS SUMMARY | ~2019-03-02 | XMS | Encounter Summary ---
Demographics + + + | Address | [address] | | | [place] [address] | + + + | Home Phone | | + + + | Preferred Language | Unknown | + + + | Marital Status | Single | + + + | Muslim Affiliation | NRP | + + + [...] Team Providers + +------+ + | Care Axle Inspector Name | Role | Phone | + [...] | | | | [address] | [place] [address] | | | | | [place], [place] | [phone] | | | | | [address] | | | | | | [phone] | | | +--------+ + + + [...] [address] | | | | | | [place], [place] | | | | | | [address] | | | | | | | | +--------+---------+ + + + documented as of this encounter Visit Diagnoses Not on filedocumented in this encounter"
--- OUTSIDE RECORDS SUMMARY | ~2019-03-02 | XMS | Encounter Summary ---
Demographics + + + | Address | [address] | | | [place] [address] | + + + | Home Phone | | + + + | Preferred Language | Unknown | + + + | Marital Status | Single | + + + | Anabaptist Affiliation | NRP | + + + [...] Team Providers + +------+ + | Care Seafood Service Team Member Name | Role | Phone | + +------+ + | Sanaz Carney PA-C | PCP | | + +------+ + Reason for Visit + + + | Reason | Comments | + + + | Refill Request | | + + + | Refill Request | | + + + Encounter Details +--------+ + + + + | Date | Type | Department | Care Team | Description | +--------+ + + + + | 02/23/ | Telephone | [facility] | Ethan Roach MD | Refill Request; | | 2019 | | [facility] | [address] | Refill Request | | | | [address] | [address] | | | | | [address] | [place] [address] | | | | | [place], [place] | [phone] | | | | | [address] | | | | | | [phone] | | | +--------+ + + + [...] Visit | | PA-C [address] | | | | | | [place], [place] | | | | | | [address] | | | | | | | | +--------+---------+ + + + documented as of this encounter Visit Diagnoses + + | Diagnosis | + + | S/P lumbar fusion - Primary Arthrodesis status | + + documented in this encounter"
--- OUTSIDE RECORDS SUMMARY | ~2019-03-02 | XMS | Encounter Summary ---
Demographics + + + | Address | [address] | | | [place] [address] | + + + | Home Phone | | + + + | Preferred Language | Unknown | + + + | Marital Status | Single | + + + | Amish Affiliation | NRP | + + + [...] Team Providers + +------+ + | Care [employer] Flight Attendant Name | Role | Phone | + [...] | | | | [address] | [place] [address] | | | | | [place], [place] | [phone] | | | | | [address] | | | | | | [phone] | | | +--------+ + + + [...] [address] | | | | | | [place], [place] | | | | | | [address] | | | | | | | | +--------+---------+ + + + documented as of this encounter Visit Diagnoses Not on filedocumented in this encounter"
--- OUTSIDE RECORDS SUMMARY | ~2019-03-02 | XMS | Encounter Summary ---
Demographics + + + | Address | [address] | | | [place] [address] | + + + | Home Phone | | + + + | Preferred Language | Unknown | + + + | Marital Status | Single | + + + | Scientology Affiliation | NRP | + + + [...] Team Providers + +------+ + | Care Stock Clerk Name | Role | Phone | + +------+ + PCP | Unavailable | + +------+ + Encounter Details +--------+ + + + + | Date | Type | Department | Care Team | Description | +--------+ + + + + | 11/07/ | Document-Sc | [facility] | Ethan Roach MD | | | 2016 | anned | [facility] | [address] | | | | | [address] | [address] | | | | | [address] | [place] [address] | | | | | [place], [place] | [phone] | | | | | [address] | | | | | | [phone] | | | +--------+ + + + [...] [address] | | | | | | [place], [place] | | | | | | [address] | | | | | | | | +--------+---------+ + + + documented as of this encounter Visit Diagnoses Not on filedocumented in this encounter"
--- OUTSIDE RECORDS SUMMARY | ~2019-03-02 | XMS | Clinical Summary ---
Demographics + + + | Address | [address] | | | [place] [address] | + + + | Home Phone | | + + + | Preferred Language | Unknown | + + + | Marital Status | Single | + + + | Advent Affiliation | NRP | + + + | Race | White | + + + | Ethnic Group | Not or | + + + Author + + + | Author | [facility] | + + + | Organization | [facility] | + + + | Address | Unknown | + + + | Phone | Unavailable | + + + Support + + +---------+ + | Name | Relationship | Address | Phone | + + +---------+ + | Lester [place] | ECON | Unknown | | + + +---------+ + Care Team Providers + +------+ + | Care Asp Net Mvc Developer Name | Role | Phone | + +------+ + | Sanaz Carney PA-C | PCP | | + +------+ + Source Comments [facility] is fully live on both [facility] and [facility] [place], [facility] by [facility] Allergies + + + + + + | Active Allergy | Reactions | Severity | Noted | Comments | | | | | Date | | + + + + + + | Sulfa (Sulfonamide | Rash | Medium | 12/30/19 | | | Antibiotics) | | | 19 | | + + + + + + Medications + + + +---------+------+------+-------+ | Medication | Sig | Dispensed | Refills | Star | End | Statu | | | | | | t | Date | s | | | | | | Date | | | + + + +---------+------+------+-------+ | buPROPion SR 150 | Take 1 tablet by | | 0 | 07/0 | | Activ | | mg oral tablet | mouth once daily. | | | 8/20 | | e | | sustained-release 12 | | | | 19 | | | | hr | | | | | | | + + + +---------+------+------+-------+ | | Apply 1 Dose to | | 0 | 07/0 | | Activ | | lidocaine-prilocaine | affected area as | | | 9/20 | | e | | 2.5-2.5 % topical | needed. | | | 19 | | | | cream | | | | | | | + + + +---------+------+------+-------+ | ergocalciferol | Take 50,000 Units by | | 0 | | | Activ | | 50,000 unit oral | mouth every seven | | | | | e | | capsule | days. | | | | | | + + + +---------+------+------+-------+ | | Take 1 tablet by | | 0 | | | Activ | | lisinopril-hydrochlo | mouth once daily. | | | | | e | | rothiazide 10-12.5 | | | | | | | | mg oral tablet | | | | | | | + + + +---------+------+------+-------+ | oxyCODONE | Take 1-2 tablets by | 60 | 0 | 09/2 | | Activ | | (immediate release) | mouth every four | tablet | | 5/20 | | e | | 5 mg oral tablet | hours as needed for | | | 19 | | | | | moderate pain or | | | | | | | | severe pain. | | | | | | + + + +---------+------+------+-------+ | methocarbamol 500 | Take 1 tablet by | 42 | 0 | 09/2 | | Activ | | mg oral | mouth three times | tablet | | 5/20 | | e | | tabletIndications: | daily as needed. | | | 19 | | | | muscle spasm | Indications: muscle | | | | | | | | spasm | | | | | | + + + +---------+------+------+-------+ | ondansetron ODT 8 | Dissolve 1 tablet on | 12 | 0 | 09/2 | | Activ | | mg oral | tongue and swallow | tablet | | 5/20 | | e | | tablet,disintegratin | every eight hours as | | | 19 | | | | gIndications: | needed. | | | | | | | prevention of | Indications: prevent | | | | | | | post-operative | nausea and vomiting | | | | | | | nausea and vomiting | after surgery | | | | | | + + + +---------+------+------+-------+ | senna-docusate | Take 2 tablets by | 20 | 0 | 09/2 | | Activ | | 8.6-50 mg oral | mouth twice daily as | tablet | | 5/20 | | e | | tabletIndications: | needed for | | | 19 | | | | constipation | constipation. | | | | | | | | Indications: | | | | | | | | constipation | | | | | | + + + +---------+------+------+-------+ | oxyCODONE | Take 1-2 tablets by | 48 | 0 | 09/3 | | Activ | | (immediate release) | mouth every four | tablet | | 0/20 | | e | | 5 mg oral | hours as needed for | | | 19 | | | | tabletIndications: | severe pain (for | | | | | | | S/P lumbar fusion | pain.). | | | | | | + + + +---------+------+------+-------+ | gabapentin 300 mg | Take 1 capsule by | 90 | 0 | 10/0 | | Activ | | oral | mouth three times | capsule | | 2/20 | | e | | capsuleIndications: | daily. Titrate: 300 | | | 19 | | | | S/P lumbar fusion | mg QD X 3 days; 300 | | | | | | | | mg BID X 3 days then | | | | | | | | 300 mg TID | | | | | | | | maintain. | | | | | | + + + +---------+------+------+-------+ | methylPREDNISolone | Take | 1 | 0 | 10/0 | | Activ | | (MEDROL (HELIO)) 4 mg | | Package | | 8/20 | | e | | oral tablets,dose | | | | 19 | | | | packIndications: | | | | | | | | Left lumbar | | | | | | | | radiculopathy | | | | | | | + + + +---------+------+------+-------+ | omeprazole 20 mg | Take 1 capsule by | 6 | 0 | 10/0 | | Activ | | oral capsule,delayed | mouth once daily. | capsule | | 8/20 | | e | | | Administer 30 to 60 | | | 19 | | | | release(DR/EC)Indica | minutes before | | | | | | | tions: Left lumbar | meals, Take while on | | | | | | | radiculopathy | Medrol | | | | | | + + + +---------+------+------+-------+ Active Problems + + + | Problem | Noted Date | + + + | S/P lumbar discectomy x 2 | 12/29/2018 | + + + | Lumbar degenerative disc disease | 12/29/2018 | + + + | Lumbar radiculopathy, right | 12/29/2018 | + + + | Left lumbar radiculopathy | 12/29/2018 | + + + | Spinal stenosis of lumbar region without neurogenic claudication | 12/29/2018 | + + + | Lumbar disc herniation | 12/29/2018 | + + + Encounters +--------+ + + + + | Date | Type | Specialty | Care Team | Description | +--------+ + + + + | 03/02/ | Telephone | Neurological Surgery | Ethan Roach MD | | | 2018 | | | | | +--------+ + + + + | 03/02/ | Document-Sc | Neurological Surgery | Sukumar Almanza, | | | 2018 | anned | | [place] | | +--------+ + + + + | 02/23/ | Telephone | Neurological Surgery | Ethan Roach MD | Refill Request; | | 2018 | | | | Refill Request | +--------+ + + + + | 02/21/ | MyChart | Neurological Surgery | Ethan Roach MD | RE: Nerve pain | | 2019 | Encounter | | | | +--------+ + + + + | 02/17/ | Pharmacy | | | | | 2018 | Visit | | | | +--------+ + + + + | 02/15/ | Anesthesia | Surgery | Key Glass, | | | 2019 | Event | | [place] | | +--------+ + + + + | 02/15/ | Surgery | Surgery | Ethan Roach MD | ANTERIOR L5-S1 | | 2018 | | | | INTERBODY | | | | | | FUSION/LEFT L4-5, | | | | | | RIGHT L5-S1 | | | | | | DECOMPRESSIONS | +--------+ + + + + | 02/15/ | Hospital | Adult Acute Care | Ethan Roach MD | | | 2019 - | Encounter | | | | | | | | | | | 02/17/ | | | | | | 2018 | | | | | +--------+ + + + + | 02/15/ | Travel | | | | | 2018 | | | | | +--------+ + + + + | 02/15/ | Procedure | Surgery | | | | 2019 | Pass | | | | +--------+ + + + + | 02/11/ | Telephone | Pre-operative | Lynda Pepper, | Preop | | 2019 | | Medicine | RN | | +--------+ + + + + | 02/11/ | Document-Sc | Neurological Surgery | Ethan Roach MD | | | 2018 | anned | | | | +--------+ + + + + | 02/11/ | Telephone | Neurological Surgery | Ethan Roach MD | Pre-op evaluation | | 2018 | | | | | +--------+ + + + + | 02/02/ | Document-Sc | Neurological Surgery | Ethan Roach MD | | | 2018 | anned | | | | +--------+ + + + + | 01/22/ | Telephone | Neurological Surgery | Ethan Roach MD | | | 2018 | | | | | +--------+ + + + + | 12/29/ | Office | Neurological Surgery | Ethan Roach MD | Lumbar | | 2018 | Visit | | | radiculopathy, right | | | | | | (Primary Dx); Left | | | | | | lumbar | | | | | | radiculopathy; | | | | | | Lumbar degenerative | | | | | | disc disease; Spinal | | | | | | stenosis of lumbar | | | | | | region without | | | | | | neurogenic | | | | | | claudication; Lumbar | | | | | | disc herniation; | | | | | | S/P lumbar | | | | | | discectomy x 2 | +--------+ + + + + | 12/29/ | Hospital | Radiology | Ginna Marcos | | | 2018 | Encounter | | [place] | | +--------+ + + + + | 12/29/ | Travel | | | | | 2018 | | | | | +--------+ + + + + | 12/22/ | Bike [facility]er | Neurological Surgery | Ginna Marcos | Back pain, | | 2018 | | | [place] | unspecified back | | | | | | location, | | | | | | unspecified back | | | | | | pain laterality, | | | | | | unspecified | | | | | | chronicity (Primary | | | | | | Dx) | +--------+ + + + + | 12/04/ | Document-Sc | Neurological Surgery | Ethan Roach MD | | | 2018 | anned | | | | +--------+ + + + + from Last 3 Months Family History + + +--------+ + | Medical History | Relation | Name | Comments | + + +--------+ + | No Known Problems | Brother | | | + + +--------+ + | Heart Disease | Father | | | + + +--------+ + | Hypertension | Father | | | + + +--------+ + | No Known Problems | Maternal | | | | | Grandfath | | | | | er | | | + + +--------+ + | No Known Problems | Maternal | | | | | Grandmoth | | | | | er | | | + + +--------+ + | Other | Mother | | DDD and chronic back pain. | + + +--------+ + | No Known Problems | Paternal | | | | | Grandfath | | | | | er | | | + + +--------+ + | Diabetes | Paternal | | Diet controlled | | | Grandmoth | | | | | er | | | + + +--------+ + | Heart Disease | Paternal | | | | | Grandmoth | | | | | er | | | + + +--------+ + | Drug abuse | Sister | | Recently off meth. | + + +--------+ + | Ulcerative colitis | Son | Kody | | + + +--------+ + + +--------+ + + | Relation | Name | Status | Comments | + +--------+ + + | Brother | | Alive | | + +--------+ + + | Father | | Alive | | + +--------+ + + | Maternal Grandfather | | Alive | | + +--------+ + + | Maternal Grandmother | | | | + +--------+ + + | Mother | | Alive | | + +--------+ + + | Paternal Grandfather | | | | + +--------+ + + | Paternal Grandmother | | Alive | | + +--------+ + + | Sister | | Alive | | + +--------+ + + | Son | Kody | Alive | | + +--------+ + + Social History + +-------+ +--------+------+ [...] recent travel history available. | + + Last Filed Vital Signs + + + + + | Vital Sign | Reading | Time Taken | Comments | + + + + + | Blood Pressure | 110/72 | 02/17/2019 2:39 PM | | | | | PDT | | + + + + + | Pulse | 87 | 02/17/2019 2:39 PM | | | | | PDT | | + + + + + | Temperature | 36.6 C (97.9 F) | 02/17/2019 2:39 PM | | | | | PDT | | + + + + + | Respiratory Rate | 18 | 02/17/2019 2:39 PM | | | | | PDT | | + + + + + | Oxygen Saturation | 98% | 02/17/2019 2:39 PM | | | | | PDT | | + + + + + | Inhaled Oxygen | - | - | | | Concentration | | | | + + + + + | Weight | 115 kg (253 lb 8.5 | 02/15/2019 6:14 AM | | | | oz) | PDT | | + + + + + | Height | 180.3 cm (5' 11") | 02/15/2019 6:14 AM | | | | | PDT | | + + + + + | Body Mass Index | 35.36 | 02/15/2019 6:14 AM | | | | | PDT | | + + + + + Plan of Treatment +--------+---------+ + + + | Date | Type | Specialty | Care Team | Description | +--------+---------+ + + + | 03/15/ | Office | Neurological Surgery | Sukumar Almanza, | | | 2018 | Visit | | [place] [address] | | | | | | [place], [place] | | | | | | [address] | | | | | | | | +--------+---------+ + + + + + + + + | Health Maintenance | Due Date | Last Done | Comments | + + + + + | Influenza (Flu) | | | | | vaccination (#1) | 9 | | | + + + + + | Pneumococcal | Aged Out | | No longer eligible | | vaccination | | | based on patient's | | | | | age to complete this | | | | | topic | + + + + + Implants + +------+-------+ +--------+--------+--------+ | Implanted | Type | Area | Manufacture | Device | Shelf | Model | | | | | r | | Expira | / | | | | | | Identi | tion | Serial | | | | | | fier | Date | / Lot | + +------+-------+ +--------+--------+--------+ | Bone Infuse Kit X Small | | N/A: | | | 02/22/ | [id number] | | [id number] - [id number]: | | Spine | | | 2019 | 0 / | | Qty: 1 on 02/15/2019 by Doc, | | | | | | /[id number] | | Ethan Fitch MD at [facility] IP Rev | | | | | | [id number] | | Location | | | | | | | + +------+-------+ +--------+--------+--------+ | Putty Dbm Maxxeus 10cc 1/ | | N/A: | COMMUNITY | | 10/23/ | 2018- | | - [id number]: Qty: | | Spine | TISSUE BANK | | 2020 | 0 | | 1 on 02/15/2019 by Ethan Roach | | | | | | /[id number] | | MD Little at [facility] IP Rev Location | | | | | | 9-298 | | | | | | | | /[id number] | | | | | | | | 10 | + +------+-------+ +--------+--------+--------+ | Coroent Xlr-F Screw 5.5x25mm | | N/A: | | | | [id number] | | Implanted: Qty: 2 on | | Spine | | | | 5 | | 02/15/2019 by Ethan Roach, | | | | | | /[id number] | | at [facility] IP Rev Location | | | | | | 8 / | + +------+-------+ +--------+--------+--------+ | Brigade Hyperlordotic | | N/A: | | | | [id number] | | [id number] Implanted: | | Spine | | | | 4 | | Qty: 1 on 02/15/2019 by Doc, | | | | | | /[id number] | | Ethan Fitch MD at [facility] IP Rev | | | | | | 9 / | | Location | | | | | | | + +------+-------+ +--------+--------+--------+ | Brigade Plate Screw 6.5x30mm | | N/A: | | | | [id number] | | Implanted: Qty: 4 on | | Spine | | | | 0 | | 02/15/2019 by Ethan Roach, | | | | | | /[id number] | | at [facility] IP Rev Location | | | | | | 0 / | + +------+-------+ +--------+--------+--------+ | Brigade Plare 40 Mm Lordotic | | N/A: | | | | [id number] | | Implanted: Qty: 1 on | | Spine | | | | 0 | | 02/15/2019 by Ethan Roach, | | | | | | /[id number] | | MD at [facility] IP Rev Location | | | | | | 0 / | + +------+-------+ +--------+--------+--------+ Procedures + +--------+ + + + | Procedure Name | Priori | Date/Time | Associated Diagnosis | Comments | | | ty | | | | + +--------+ + + + | GLUCOSE, POC | Routin | 02/16/2019 | Spinal stenosis of | Results for this | | | e | 5:21 AM | lumbar region | procedure are in the | | | | PDT | without neurogenic | results section. | | | | | claudication | | + +--------+ + + + | X-RAY FLUOROSCOPY > | Routin | 02/15/2019 | | Results for this | | 1 HOUR | e | 1:00 PM | | procedure are in the | | | | PDT | | results section. | + +--------+ + + + | X-RAY SPINE | Routin | 02/15/2019 | | Results for this | | LUMBOSACRAL 2 VIEWS | e | 12:32 PM | | procedure are in the | | | | PDT | | results section. | + +--------+ + + + | ANE ETT | Routin | 02/15/2019 | | | | | e | 7:54 AM | | | | | | PDT | | | + +--------+ + + + +---+--------+ | | | | | Proced | | | ure | | | Note - | | | | | | Tianna | | | , Josefa | | | Leon, | | | MD - | | | | | | 2018 | | | 7:54 | | | AM PDT | | | | | | AIRWAY | | | | | | MANAGE | | | MENT - | | | | | | ETTTim | | | e of | | | Placem | | | ent: | | | 9/23/2 | | | 019 | | | [...] | | | er: | | | Joesfa | | | Hang | | | Wynn | | | , MD | +---+--------+ + +--------+ + +---+ | ANTERIOR LUMBAR | Electi | 02/15/2019 | M54.16 (ICD-10-CM) | | | INTERBODY FUSION | ve | 7:35 AM | - 724.4 (ICD-9-CM) | | | | Surgic | PDT | Lumbar | | | | al | | radiculopathy, right | | | | | | M54.16 (ICD-10-CM) | | | | | | - 724.4 (ICD-9-CM) | | | | | | Left lumbar | | | | | | radiculopathy | | | | | | M51.36 (ICD-10-CM) - | | | | | | 722.52 (ICD-9-CM) | | | | | | Lumbar degenerative | | | | | | disc disease | | | | | | M48.061 (ICD-10-CM) | | | | | | - 724.02 (ICD-9-CM) | | | | | | Spinal stenosis of | | | | | | lumbar region | | | | | | without neurogenic | | | | | | claudication M51.26 | | | | | | (ICD-10-CM) - | | | | | | 722.10 (ICD-9-CM) | | | | | | Lumbar disc | | | | | | herniation Z98.890 | | | | | | (ICD-10-CM) - V45.89 | | | | | | (ICD-9-CM) S/P | | | | | | lumbar discectomy | | + +--------+ + +---+ +---+--------+ | | | | | Specia | | | l | | | Needs | | | | | | Please | | | note | | | | | | Saurabh | | | will | | | be | | | cosurg | | | gaby | +---+--------+ + +--------+ + + + | HCG URINE, POC IP | Routin | 02/15/2019 | | Results for this | | ONLY | e | 6:42 AM | | procedure are in the | | | | PDT | | results section. | + +--------+ + + + | CARDIOLOGY | | 02/15/2019 | | Results for this | | | | 12:00 AM | | procedure are in the | | | | PDT | | results section. | + +--------+ + + + | LAB REPORTS | | 02/05/2019 | | Results for this | | | | 12:00 AM | | procedure are in the | | | | PDT | | results section. | + +--------+ + + + | OUTSIDE CARDIOLOGY | | 01/27/2019 | | Results for this | | | | 12:00 AM | | procedure are in the | | | | PDT | | results section. | + +--------+ + + + | X-RAY SPINE | Routin | 12/29/2018 | Back pain, | Results for this | | LUMBOSACRAL 4 VIEWS | e | 10:57 AM | unspecified back | procedure are in the | | | | PDT | location, | results section. | | | | | unspecified back | | | | | | pain laterality, | | | | | | unspecified | | | | | | chronicity | | + +--------+ + + + from Last 3 Months Results GLUCOSE, POC (02/16/2019 5:21 AM PDT) + +---------+ + + + | Component | Value | Ref Range | Performed | Pathologist | | | | | At | Signature | + +---------+ + + + | BLOOD | 109 (H) | 60 - 99 mg/dL | [facility] | | | GLUCOSE, | | | INPATIENT - | | | POC | | | POINT OF | | | | | | CARE | | + +---------+ + + + + + | Specimen | + + | Blood | + + + +---------+ + + | Performing | Address | City/State/Zipcode | Phone Number | | Organization | | | | + +---------+ + + | [facility] | | | | | - POINT OF CARE | | | | + +---------+ + + X-RAY FLUOROSCOPY > 1 HOUR (02/15/2019 1:00 PM PDT) + + | Specimen | + + | | + + + + + | Narrative | Performed At | + + + | - At the time of the study, no professional interpretation was | [facility] | | requested. - | RADIOLOGY | + + + + + + + + | Performing | Address | City/State/Zipcode | Phone Number | | Organization | | | | + + + + + | [facility] | [address] | [place] [address] | [phone] | + + + + + X-RAY SPINE LUMBOSACRAL 2 VIEWS (02/15/2019 12:32 PM PDT) + + | Specimen | + + | | + + + + + | Narrative | Performed At | + + + | EXAM DESCRIPTION: X-RAY SPINE LUMBOSACRAL 2 VIEWS CLINICAL | [facility] | | HISTORY: Postop L5-S1 ALIF COMPARISON: Radiographs 12/29/2018. | RADIOLOGY VOICE | | TECHNIQUE: Two AP views and 1 lateral view. FINDINGS: The | RECOGNITION | | L5-S1 level is not well visualized on the lateral view. There is | | | anterior fusion hardware at the L5-S1 level. Hardware appears intact. | | | No fracture line is seen. Alignment appears grossly anatomic. | | | Intrauterine device is noted in the pelvis. IMPRESSION: Status | | | post anterior fusion at L5-S1. Signed By: Conner Olvera On | | | 02/15/2019 13:04:18 | | + + + + ------+ | Procedure Note | + ------+ | Service Account, Radiant Res In Interface - 02/15/2019 1:07 PM PDT EXAM | | DESCRIPTION:X-RAY SPINE LUMBOSACRAL 2 VIEWS CLINICAL HISTORY:Postop L5-S1 ALIF | | COMPARISON:Radiographs 12/29/2018. TECHNIQUE:Two AP views and 1 lateral view. | | FINDINGS:The L5-S1 level is not well visualized on the lateral view. There is anterior | | fusion hardware atthe L5-S1 level. Hardware appears intact. No fracture line is seen. | | Alignment appears grosslyanatomic. Intrauterine device is noted in the pelvis. | | IMPRESSION:Status post anterior fusion at L5-S1. Signed By: Conner Olvera On | | 02/15/2019 13:04:18 | | | |TECHNIQUE: | |Two AP views and 1 lateral view. | | | |FINDINGS: | |The L5-S1 level is not well visualized on the lateral view. There is anterior fusion hardwa re at | |the L5-S1 level. Hardware appears intact. No fracture line is seen. Alignment appears gross ly | |anatomic. Intrauterine device is noted in the pelvis. | | | |IMPRESSION: | |Status post anterior fusion at L5-S1. | | | | | |Signed By: Conner Olvera On 02/15/2019 13:04:18 | + ------+ + + + + + | Performing | Address | City/State/Zipcode | Phone Number | | Organization | | | | + + + + + | [facility] | [address] | [place] [address] | [phone] | | VOICE RECOGNITION | | | | + + + + + HCG URINE, POC IP ONLY (02/15/2019 6:42 AM PDT) + + + + + + | Component | Value | Ref Range | Performed | Pathologist | | | | | At | Signature | + + + + + + | HCG URINE, | negative | Negative | [facility] | | | POC | | | [facility]IN [facility] | | + + + + + + | QC: ENTER | pass | | [facility] | | | "PASS" OR | | | [facility]IN [facility] | | | "FAIL", | | | | | | URINE HCG | | | | | + + + + + + | LOT # - | [id number] | | [facility] | | | URINE HCG, | | | [facility] | | | POC | | | | | + + + + + + + + | Specimen | + + | Urine | + + + + + + + | Performing | Address | City/State/Zipcode | Phone Number | | Organization | | | | + + + + + | [facility] | [address] | [place] [address] | [phone] | + + + + + CARDIOLOGY (02/15/2019 12:00 AM PDT) + + + | Narrative | Performed At | + + + | | | + + + LAB REPORTS (02/05/2019 12:00 AM PDT) + + + | Narrative | Performed At | + + + | | | + + + OUTSIDE CARDIOLOGY (01/27/2019 12:00 AM PDT) + + + | Narrative | Performed At | + + + | | | + + + X-RAY SPINE LUMBOSACRAL 4 VIEWS (12/29/2018 10:57 [...] RADIOLOGY | [address] | [place] [address] | [phone] | | VOICE RECOGNITION | | | | + + + + + from Last 3 Months Insurance + +--------+ +--------+ + +------+ | Payer | Benefi | Subscriber | Effect | Phone | Address | Type | | | t Plan | ID | patrice | | | | | | / | | Dates | | | | | | Group | | | | | | + +--------+ +--------+ + +------+ | [employer] [place] | [employer]BS | xxxxxxxxxxx | Effect | [phone] | [address] | PPO | | | [place] | x | patrice | [address] | [place] | | | | IS | | for | | [place], [place] | | | | | | all | | [id number] | | | | | | dates | | | | + +--------+ +--------+ + +------+ + +--------+ +--------+ + + | Guarantor Name | Accoun | Relation to | Date | Phone | Billing Address | | | t Type | Patient | of | | | | | | | | | | + +--------+ +--------+ + + | Yolanda James | Person | Self | [birth year] | [address] | | | al/Fam | | 1984 | [phone] | [place] [address] | | | jackie | | | 5 (Home) | | | | | | | [phone] | | | | | | | 8 (Work) | | + +--------+ +--------+ + + Advance Directives + + + + + | Code Status | Date | Date | Comments | | | Activated | Inactivated | | + + + + + | Full Code | 02/17/2019 | 02/17/2019 | | | | 1:16 PM | 9:41 PM | | + + + + + + + + +---+ | | | | | + + + +---+ | Full Code | 02/15/2019 | 02/15/2019 | | | | 6:17 AM | 1:59 PM | | + + + +---+
--- OUTSIDE RECORDS SUMMARY | ~2019-03-02 | XMS | Encounter Summary ---
Demographics + + + | Address | [address] | | | [place] [address] | + + + | Home Phone | | + + + | Preferred Language | Unknown | + + + | Marital Status | Single | + + + | Caodaism Affiliation | NRP | + + + [...] Team Providers + +------+ + | Care Stencil Cutter Machine Name | Role | Phone | + [...] | | | | [address] | [place] [address] | | | | | [place], [place] | [phone] | | | | | [address] | | | | | | [phone] | | | +--------+ + + + [...] Maribel | | | | | | [place], [place] | | | | | | [address] | | | | | | | | +--------+---------+ + + + documented as of this encounter Visit Diagnoses + + | Diagnosis | + + | S/P lumbar fusion - Primary Arthrodesis status | + + documented in this encounter"
--- OUTSIDE RECORDS SUMMARY | ~2019-03-02 | XMS | Encounter Summary ---
Demographics + + + | Address | [address] | | | [place] [address] | + + + | Home Phone | | + + + | Preferred Language | Unknown | + + + | Marital Status | Single | + + + | Synagogue Affiliation | NRP | + + + | Race | White | + + + | Ethnic Group | Not or | + + + Author + + + | Organization | Unknown | + + + | Address | Unknown | + + + | Phone | Unavailable | + + + Support + + +---------+ + | Name | Relationship | Address | Phone | + + +---------+ + | Lester Wells | ECON | Unknown | | + + +---------+ + Care Team Providers + +------+ + | Care Clay Plant Treater Name | Role | Phone | + +------+ + | No Pcp Per Patient | PCP | Unavailable | + +------+ + Encounter Details +--------+--------+ + + + | Date | Type | Department | Care Team | Description | +--------+--------+ + + + | 12/29/ | Travel | | | | | 2019 | | | | | +--------+--------+ + + + Social History + +-------+ [...] [facility] | | | | | | [place], [place] | | | | | | [id number] | | | | | | | | +--------+---------+ + + + documented as of this encounter Visit Diagnoses Not on filedocumented in this encounter"
--- OUTSIDE RECORDS SUMMARY | ~2019-03-02 | XMS | Encounter Summary ---
Demographics + + + | Address | [address] | | | [place] [address] | + + + | Home Phone [...] Team Providers + +------+ + | Care Feed Handler Name | Role | Phone | + +------+ + | Sanaz Carney PA-C | PCP | | + +------+ + Encounter Details +--------+ + + + + | Date | Type | Department | Care Team | Description | +--------+ + + + + | 03/02/ | Document-Sc | [facility] | Sukumar Almanza, | | | 2019 | anned | [facility] | [facility] [address] | | | | | [address] | [place], [place] | | | | | [facility] [address] | [id number] | | | | | [place], [place] | | | | | | [address] | | | | | | [phone] | | | +--------+ + + + [...] Visit | | [facility] [address] | | | | | | [place] | | | | | | [address] | | | | | | | | +--------+---------+ + + + documented as of this encounter Visit Diagnoses Not on filedocumented in this encounter"
--- OUTSIDE RECORDS SUMMARY | ~2019-03-02 | XMS | Encounter Summary ---
Demographics + + + | Address | [address] | | | [place] [address] | + + + | Home Phone | | + + + | Preferred Language | Unknown | + + + | Marital Status | Single | + + + | Judaism Affiliation | NRP | + + + [...] Team Providers + +------+ + | Care Cigarette Stamper Name | Role | Phone | + +------+ + | No Pcp Per Patient | PCP | Unavailable | + +------+ + Encounter Details +--------+ + + + + | Date | Type | Department | Care Team | Description | +--------+ + + + + | 02/02/ | Document-Sc | [facility] | Ethan Roach MD | | | 2019 | anned | [facility] | [address] | | | | | [address] | [address] | | | | | [address] | [place] [address] | | | | | [place], [place] | [phone] | | | | | [address] | | | | | | [phone] | | | +--------+ + + + [...] [place] | | | | | | [id number] | | | | | | | | +--------+---------+ + + + documented as of this encounter Visit Diagnoses Not on filedocumented in this encounter"
--- OUTSIDE RECORDS SUMMARY | ~2019-03-02 | XMS | Encounter Summary ---
Demographics + + + | Address | [address] | | | [place] [address] | + + + | Home Phone | | + + + | Preferred Language | Unknown | + + + | Marital Status | Single | + + + | Voodoo Affiliation | NRP | + + + [...] Phone | + + +---------+ + | Miguel A Mark | ECON | Unknown | | + + +---------+ + Care Team Providers + +------+ + | Care Self Propelled Hot Mix Roller Operator Name | Role | Phone | [...] Description | +--------+---------+ + + + | 02/15/ | Surgery | [facility] | Ethan Roach MD | ANTERIOR L5-S1 | | 2019 | | OP LOC [address] | [address] | INTERBODY | | | | Ave [place], [place] | [address] | FUSION/LEFT L4-5, | | | | [address] | [place] [address] | RIGHT L5-S1 | | | | | [phone] | DECOMPRESSIONS | +--------+---------+ + + + Social History [...] + + + documented in this encounter Functional Status + + + [...] + + documented as of this encounter Discharge Summaries Sukumar Almanza PA-C - 02/17/2019 3:36 PM PDT [facility] Discharge Summary Admit Date: 02/15/2019 Discharge Date: 02/17/2019 PCP: Sanaz Carney PA-C Attending Physician: Ethan Roach MD Discharging Provider: Sukumar Almanza PA-C Reason for Admission: Elective spine surgery Principal Final Diagnosis: Lumbar radiculopathy, LEFT Neurogenic claudication Lumbar degenerative disc disease Additional Diagnoses: Past Medical History: Diagnosis Date Astigmatism Depression Gestational diabetes mellitus (GDM) affecting first Heart murmur Hypertension Numbness and tingling of left leg Rosacea Sciatica Left greater than right. Procedures: Stage I 1. Anterior lumbar interbody arthrodesis L5-S1 2. Anterior PEEK interbody spacer L5-S1 3. Anterior lumbar plating L5-S1 Stage II 1. Minimally invasive L4 hemilaminectomy, partial facetectomy for decompression of thecal sac and L5 nerve Hospital Course By Problem: Yolanda James was admitted for the above captioned procedures on 02/15/2019. She tolerated surgery well. She was recovered in the PACU and then transferred to the med-surg daniels. She was seen by PT./OT and mobilized. She was determined to be appropriate for discharge to home with famil y members. She was able to take PO nutrition with nausea or emesis. She vided. Pain contr ol was adequate at the time of discharge. Discharge Physical Exam: Last 24 hour min/max Temp: 36.6 C (97.9 F) Temp Min: 36.6 C (97.9 F) Max: 36.6 C (97.9 F) Pulse: 87 Pulse Min: 87 Max: 87 Resp: 18 Resp Min: 18 Max: 18 BP: 110/72 BP Min: 110/72 Max: 110/72 SpO2: 98 % SpO2 Min: 98 % Max: 98 % Body mass index is 35.36 kg/m. NEUROLOGICAL EXAM: Awake, alert, oriented Speech fluent, answers appropriately Conj gaze Face symmetric BUE full strength BLE 5/5 HF/KE/DF/EHL/PF SILT Incisiondressingsclean/dry/intact Discharge Medications: Medication List START taking these medications methocarbamol 500 mg Tab Commonly known as: ROBAXIN Take 1 tablet by mouth three times daily as needed. Indications: muscle spasm ondansetron ODT 8 mg Tbdi Commonly known as: ZOFRAN ODT Dissolve 1 tablet on tongue and swallow every eight hours as needed. Indications: prevent n ausea and vomiting after surgery oxyCODONE (immediate release) 5 mg Tab Commonly known as: ROXICODONE Take 1-2 tablets by mouth every four hours as needed for moderate pain or severe pain. senna-docusate 8.6-50 mg Tab Commonly known as: SENOKOT S Take 2 tablets by mouth twice daily as needed for constipation. Indications: constipation CONTINUE taking these medications buPROPion SR 150 mg Sr12 Commonly known as: WELLBUTRIN-SR, ZYBAN Take 1 tablet by mouth once daily. ergocalciferol 50,000 unit Cap Commonly known as: VITAMIN D2, DRISDOL Take 50,000 Units by mouth every seven days. lidocaine-prilocaine 2.5-2.5 % Crea Commonly known as: EMLA Apply 1 Dose to affected area as needed. lisinopril-hydrochlorothiazide 10-12.5 mg Tab Commonly known as: ZESTORETIC Take 1 tablet by mouth once daily. Allergies: Allergies Allergen Reactions Sulfa (Sulfonamide Antibiotics) Rash Code Status: Full Additional Instructions: Diet Instructions Resume home diet - Activity Instructions Activity: -Activity instructions: no strenuous exercise, no bending/twisting, lifting restricted to < 1/2 gallon of milk in weight. -No forward bending to the floor to order picker/assembler objects -Keep head above the level of the heart -Walk 150 feet 3-4 times daily -You may remove compression stockings when you are able to walk 150 feet three times daily. -No driving after surgery or while taking opioid pain medications, muscle relaxants or any other medication that causes drowsiness. This will be addressed at your 2 weeks post-op vis it. -Physical therapy recommendations will be addressed at your 2 weeks post-op visit. -Wear LSO bace when out of bed. Additional Instructions Neurosurgery Discharge Plan of Care Wound Care: LUMBAR incision *Your incision was closed with surgical glue and steri-strips. *Please keep the incisions covered for 7-10 day after surgery. *no submersion in water - no bath or swimming *If you have Dermabond (SKIN GLUE) on your incision you may shower on post-op day #3. Abdominal incision can be discontinued on 02/18/2019. Pain: -PRN Tylenol -Do not exceed 4 grams of acetaminophen daily -As needed pain medication. Wean off as soon as possible -NO NSAIDs (Ibuprofen, motrin, Aleve) Medication warning Continue to AVOID the following: *All non-steroidal anti-inflammatories and anti-platelet medications (Aspirin or any medica tion that contains Aspirin, Aleve, Advil, Celebrex, Excedrin, Ibuprofen, Toradol,Fish oil pr oducts, Indocin, Naproxen, Fragmen, Plavix supplements, root bear, etc.) *All Marijuana products (inhalational, edible, topical) *All herbal supplements, including herbal tea *Topical NSAIDs/pain relievers (Diclofenac, Aspercreme, Voltaren gel, etc.) DO NOT RESTART THESE MEDICATIONS UNTIL CLEARED BY [facility]. Activity: -Activity instructions: no strenuous exercise, no bending/twisting, lifting restricted to < 1/2 gallon of milk in weight. -No forward bending to the floor to order picker/assembler objects -Keep head above the level of the heart -Walk 150 feet 3-4 times daily -You may remove compression stockings when you are able to walk 150 feet three times daily. -No driving after surgery or while taking opioid pain medications, muscle relaxants or any other medication that causes drowsiness. This will be addressed at your 2 weeks post-op vis it. -Physical therapy recommendations will be addressed at your 2 weeks post-op visit. -Wear LSO bace when out of bed. Diet: -Resume home diet. Bowel: -daily bowel protocol recommend Colace, Miralax, Metamucil -no straining Neurosurgery Follow-up -follow-up in 4 weeks for follow-up 03/15/2019 @ 1:30 pm Office Address: Ethan Roach MD [facility] Neurosurgery [address], [address] [place] [id number] Follow Up: Future Appointments Provider Department Dept Phone Center 03/15/2019 1:45 PM Sukumar Almanza [facility] Neurosurgery at [facility] [phone] [facility] Neurosur Schedule the following appointment(s) when you get home Sanaz Carney PA-C . Specialty: Physician Tobacco Prizer Contact information [facility] [address] Sukumar Almanza PA-C [facility] Neurosurgery [phone] documented in this encounter Discharge Instructions Discharge Instr - AVS First Page Sukumar Almanza PA-C - 02/16/2019 4:05 PM PDTNeurosurge ry Follow-up -follow-up in 4 weeks for follow-up 03/15/2019 @ 1:30 pm Office Address: Ethan Roach MD [facility] Neurosurgery [address], [address] [place] [address] Discharge Instr - Activity Sukumar Almanza PA-C - 02/16/2019 4:07 PM PDTActivity: -Activity instructions: no strenuous exercise, no bending/twisting, lifting restricted to < 1/2 gallon of milk in weight. -No forward bending to the floor to order picker/assembler objects -Keep head above the level of the heart -Walk 150 feet 3-4 times daily -You may remove compression stockings when you are able to walk 150 feet three times daily. -No driving after surgery or while taking opioid pain medications, muscle relaxants or any other medication that causes drowsiness. This will be addressed at your 2 weeks post-op vis it. -Physical therapy recommendations will be addressed at your 2 weeks post-op visit. -Wear LSO bace when out of bed. Discharge Instr - Diet Sukumar Almanza PA-C - 02/16/2019 4:05 PM PDTResume home dietElec tronically signed by Sukumar Almanza PA-C at 02/16/2019 4:05 PM PDT Discharge Instr - Diagnoses Sukumar Almanza PA-C - 02/16/2019 4:04 PM PDT Lumbar radiculopathy, right Left lumbar radiculopathy Lumbar degenerative disc disease Spinal stenosis of lumbar region without neurogenic claudication Lumbar disc herniation S/P lumbar discectomy Discharge Instr - Procedures Sukumar Almanza PA-C - 02/16/2019 4:04 PM PDTStage I 1. Anterior lumbar interbody arthrodesis L5-S1 2. Anterior PEEK interbody spacer L5-S1 3. Anterior lumbar plating L5-S1 Stage II 1. Minimally invasive L4 hemilaminectomy, partial facetectomy for decompression of thecal sac and L5 nerve Discharge Instr - Hospital Course Sukumar Almanza PA-C - 02/17/2019 1:16 PM PDTFormattin rené of this note might be different from the original. You were admitted for the above captioned procedure. You did well with surgery. You were transferred to the med surg daniels where you recovered. You were voiding, taking PO nutrition, walking and experiencing good pain control. You were felt to be ready to go home with family. Last Vitals: BP 109/69 (BP Location: Left upper arm, Patient Position: Lying on back) | Pu lse 80 | Temp 36.4 C (97.5 F) (Temporal) | Resp 16 | Ht 1.803 m (5' 11") | Wt 115 kg (253 lb 8.5 oz) | SpO2 95% | BMI 35.36 kg/m | BSA 2.4 m 24 Hour Vital Min/Max: Systolic (24hrs), Av , Min:103 , Max:148 Diastolic (24hrs), Av, Min:64, Max:87 Pulse Min: 80 Max: 94 Temp Min: 36.4 C (97.5 F) Max: 37.1 C (98.8 F) Resp Min: 16 Max: 16 SpO2 Min: 95 % Max: 99 % Intake/Output Summary (Last 24 hours) at 02/17/2019 1315 Last data filed at 02/17/2019 0900 Gross per 24 hour Intake 480 ml Output 1850 ml Net -1370 ml Your strength exam was normal in both lower extremities. Additional Instructions Sukumar Almanza PA-C - 02/16/2019 4:05 PM PDTNeurosurgery Discha rge Plan of Care Wound Care: LUMBAR incision *Your incision was closed with surgical glue and steri-strips. *Please keep the incisions covered for 7-10 day after surgery. *no submersion in water - no bath or swimming *If you have Dermabond (SKIN GLUE) on your incision you may shower on post-op day #3. Abdominal incision can be discontinued on 02/18/2019. Pain: -PRN Tylenol -Do not exceed 4 grams of acetaminophen daily -As needed pain medication. Wean off as soon as possible -NO NSAIDs (Ibuprofen, motrin, Aleve) Medication warning Continue to AVOID the following: *All non-steroidal anti-inflammatories and anti-platelet medications (Aspirin or any medica tion that contains Aspirin, Aleve, Advil, Celebrex, Excedrin, Ibuprofen, Toradol,Fish oil pr oducts, Indocin, Naproxen, Fragmen, Plavix supplements, root bear, etc.) *All Marijuana products (inhalational, edible, topical) *All herbal supplements, including herbal tea *Topical NSAIDs/pain relievers (Diclofenac, Aspercreme, Voltaren gel, etc.) DO NOT RESTART THESE MEDICATIONS UNTIL CLEARED BY [facility]. Activity: -Activity instructions: no strenuous exercise, no bending/twisting, lifting restricted to < 1/2 gallon of milk in weight. -No forward bending to the floor to order picker/assembler objects -Keep head above the level of the heart -Walk 150 feet 3-4 times daily -You may remove compression stockings when you are able to walk 150 feet three times daily. -No driving after surgery or while taking opioid pain medications, muscle relaxants or any other medication that causes drowsiness. This will be addressed at your 2 weeks post-op vis it. -Physical therapy recommendations will be addressed at your 2 weeks post-op visit. -Wear LSO bace when out of bed. Diet: -Resume home diet. Bowel: -daily bowel protocol recommend Colace, Miralax, Metamucil -no straining Neurosurgery Follow-up -follow-up in 4 weeks for follow-up 03/15/2019 @ 1:30 pm Office Address: Ethan Roach MD [facility]surgery [facility] [address], [address] [place] [address] documented in this encounter Medications at Time of Discharge + + + +---------+ + + | Medication | Sig | Dispensed | Refills | Start | End Date | | | | | | Date | | + + + +---------+ + + | buPROPion SR 150 | Take 1 tablet by | | 0 | 12/01/19 | | | mg oral tablet | mouth once daily. | | | 19 | | | sustained-release 12 | | | | | | | hr | | | | | | + + + +---------+ + + | ergocalciferol | Take 50,000 Units by | | 0 | | | | 50,000 unit oral | mouth every seven | | | | | | capsule | days. | | | | | + + + +---------+ + + | | Apply 1 Dose to | | 0 | 12/02/19 | | | lidocaine-prilocaine | affected area as | | | 19 | | | 2.5-2.5 % topical | needed. | | | | | | cream | | | | | | + + + +---------+ + + | | Take 1 tablet by | | 0 | | | | lisinopril-hydrochlo | mouth once daily. | | | | | | rothiazide 10-12.5 | | | | | | | mg oral tablet | | | | | | + + + +---------+ + + | methocarbamol 500 | Take 1 tablet by | 42 | 0 | 02/18/20 | | | mg oral | mouth three times | tablet | | 19 | | | tabletIndications: | daily as needed. | | | | | | muscle spasm | Indications: muscle | | | | | | | spasm | | | | | + + + +---------+ + + | ondansetron ODT 8 | Dissolve 1 tablet on | 12 | 0 | 02/18/20 | | | mg oral | tongue and swallow | tablet | | 19 | | | tablet,disintegratin | every eight hours as | | | | | | gIndications: | needed. | | | | | | prevention of | Indications: prevent | | | | | | post-operative | nausea and vomiting | | | | | | nausea and vomiting | after surgery | | | | | + + + +---------+ + + | oxyCODONE | Take 1-2 tablets by | 60 | 0 | 02/18/20 | | | (immediate release) | mouth every four | tablet | | 19 | | | 5 mg oral tablet | hours as needed for | | | | | | | moderate pain or | | | | | | | severe pain. | | | | | + + + +---------+ + + | senna-docusate | Take 2 tablets by | 20 | 0 | 02/18/20 | | | 8.6-50 mg oral | mouth twice daily as | tablet | | 19 | | | tabletIndications: | needed for | | | | | | constipation | constipation. | | | | | | | Indications: | | | | | | | constipation | | | | | + + + +---------+ + + documented as of this encounter Progress Notes Sukumar Almanza PA-C - 02/17/2019 3:26 PM PDT NEUROSURGERY FOLLOW UP: - OR on 02/15/2019 for L5-S1 ALIF and L L4 MIS lami - No acute events overnight. -Mobilizing. -Voiding -Taking PO nutrition -Pain control adequate at present. - Passing flatus OBJECTIVE: Last Vitals: BP 110/72 (BP Location: Left upper arm, Patient Position: Lying on back) | Pu lse 87 | Temp 36.6 C (97.9 F) (Temporal) | Resp 18 | Ht 1.803 m (5' 11") | Wt 115 kg (253 lb 8.5 oz) | SpO2 98% | BMI 35.36 kg/m | BSA 2.4 m 24 Hour Vital Min/Max: Systolic (24hrs), Av , Min:106 , Max:148 Diastolic (24hrs), Av, Min:64, Max:87 Pulse Min: 80 Max: 94 Temp Min: 36.4 C (97.5 F) Max: 37.1 C (98.8 F) Resp Min: 16 Max: 18 SpO2 Min: 95 % Max: 99 % Intake/Output Summary (Last 24 hours) at 02/17/2019 1528 Last data filed at 02/17/2019 0900 Gross per 24 hour Intake 480 ml Output 1250 ml Net -770 ml NEUROLOGICAL EXAM: Awake, alert, oriented Speech fluent, answers appropriately Conj gaze Face symmetric BUE full strength BLE 5/5 HF/KE/DF/EHL/PF SILT Incision dressings clean/dry/intact ASSESSMENT/PLAN: Yolanda James is a 33 y.o. female HD#1 with spinal stenosis, DDD, and history of lumbar cox inectomies/discectomy who is s/p L5-S1 ALIF and left L4 laminectomy 02/15/19 Neurosurgery Post-Op Plan of Care Post-Op Abx: -Ancef 3 grams completed Post-op Imaging/Laboratory: -Recommend eunatremia - goal Na > 135 -AP/Lateral lumbar x rays obtained in PACU Post-Op Hemodynamic Recommendations: -Keep SBP < 150 -MAP > 65 -anti-hypertensives PRN Seizure prophylaxis: -n/a Steroid Recommendations: -Not indicated Wound Care: -keep abd incision covered until 72hrs postop Pain/Sedation: -Scheduled Tylenol -PRN robaxin -PRN oxycodone -PRN dilaudid Activity: -Up with assist, LSO brace -Activity instructions: no strenuous exercise, no bending/twisting, lifting restricted to < 1/2 gallon of milk in weight -SCDs while in bed Diet/Bowel: -General diet -Daily stool softeners to prevent constipation DVT (p): -LMWH currently contraindicated Dispo planning: - Home today Lizeth Montoya MSW, CSWA - 02/17/2019 3:17 PM PDTCare Management Discharge Planning Note: Plan Discharge date/time: 02/17/19/tbd Recommendations for d/c:home with assist (prn) (ie, SNF, ICF, AFH, HH, Equip., etc, per Therapy/ MD/RN) Discharge destination: home, [place] Transportation (mode/via):family will transport/private vehicle Patient Support/Family Contact (name & #):Miguel A Arzate (partner) [phone] Potential Barriers to discharge (ie needing study, procedure, equip at home, lower level B G or HR, needs BM, etc): none identified Communication: no coordination required on behalf of pt. MURALI Rai CSWA Efraín Montoya MSW, CSWA - 02/17/2019 3:12 PM PDTCase Management Initial Assessment Reason for Admission: 1. Anterior lumbar interbody arthrodesis L5-S1 2. Anterior PEEK interbody spacer L5-S1 3. Anterior lumbar plating L5-S1 Stage II 1. Minimally invasive L4 hemilaminectomy, partial facetectomy for decompression of thecal sac and L5 nerve Admitted From: Home Emergency Contact: Extended Emergency Contact Information Primary Emergency Contact: MIGUEL A MARK Mobile Relation: None Past Medical History: M54.16 (ICD-10-CM) - 724.4 (ICD-9-CM) Lumbar radiculopathy, right M54 .16 (ICD-10-CM) - 724.4 (ICD-9-CM) Left lumbar radiculopathy M51.36 (ICD-10-CM) - 722.52 (IC D-9-CM) Lumbar degenerative disc disease M48.061 (ICD-10-CM) - 724.02 (ICD-9-CM) Spinal sten osis of lumbar region without neurogenic claudication M51.26 (ICD-10-CM) - 722.10 (ICD-9-CM) Lumbar disc herniation Z98.890 (ICD-10-CM) - V45.89 (ICD-9-CM) S/P lumbar discectomy, ANTER IOR LUMBAR INTERBODY FUSION Lives With: significant other;child(erick), dependent Living Arrangement: house Functional Level Prior to Admission: 4-->completely dependent Transportation Available: family or friend will provide Insurance/Funding: [facility] Assessment: met with pt and pt's partner at bedside to discuss DME and any other identified needs prior to pt's d/c. Pt and pt's partner state that they are well supported by family, and pt's mother has purchased all the DME recommended for pt to d/c to home with minimal ass istance. Pt states that she does not have any needs for case management at this time and is ready to d/c back to home in [place], [place]. Anticipated Discharge Needs: Anticipated Discharge Disposition: home Assessment done by: MURALI Rai CSWA Nahum Whipple MD - 02/16/2019 7:38 AM PDT NEUROSURGERY PROGRESS NOTE INTERVAL UPDATE: - OR yesterday for L5-S1 ALIF and L L4 MIS lami - No acute events overnight. - expected surgical site soreness, otherwise doing well - passing flatus OBJECTIVE: Last 24 hour min/max Temp: 36.6 C (97.9 F) Temp Min: 36.1 C (97 F) Max: 37 C (98.6 F) Pulse: 72 Pulse Min: 49 Max: 93 Resp: 16 Resp Min: 14 Max: 16 BP: 106/67 BP Min: 85/44 Max: 114/70 SpO2: 98 % SpO2 Min: 93 % Max: 100 % Body mass index is 35.36 kg/m. I/O/Drains Current Shift I/O/Drains Last 3 Completed Shifts No intake/output data recorded. 02/15 0701 - 02/16 0700 In: 3030 [P.O.:240; I.V.:2710] Out: 1490 [Urine:1365] No data recorded No data recorded Labs: Complete Blood Count/Coags No results for input(s): WBC, HB, HCT, PLT in the last 8640 hours. Invalid input(s): INR CSF Results No results for input(s): WBCCSF, RBCCSF, GLUCOSECSF, PROTEINCSF in the last 8640 hours. Chemistry Recent Labs 02/16/19 0521 GLU 109* Culture Results No results found for: CULTURE No results found for: APTT, FIBRINOGEN No results found for: RBCCSF, WBCCSF, PROTEINCSF, GLUCOSECSF, CSFAPP NEUROLOGICAL EXAM: Awake, alert, oriented Speech fluent, answers appropriately Conj gaze Face symmetric BUE full strength BLE 5/5 HF/KE/DF/EHL/PF SILT Incision dressings clean/dry/intact ASSESSMENT/PLAN: Yolanda James is a 33 y.o. female HD#1 with spinal stenosis, DDD, and history of lumbar cox inectomies/discectomy who is s/p L5-S1 ALIF and left L4 laminectomy 02/15/19 Neurosurgery Post-Op Plan of Care Post-Op Abx: -Ancef 3 grams completed Post-op Imaging/Laboratory: -Recommend eunatremia - goal Na > 135 -AP/Lateral lumbar x rays obtained in PACU Post-Op Hemodynamic Recommendations: -Keep SBP < 140 -MAP > 65 -anti-hypertensives PRN Seizure prophylaxis: -n/a Steroid Recommendations: -Not indicated Wound Care: -keep abd incision covered until 72hrs postop Pain/Sedation: -Scheduled Tylenol -PRN robaxin -PRN oxycodone -PRN dilaudid Activity: -Up with assist, LSO brace -Activity instructions: no strenuous exercise, no bending/twisting, lifting restricted to < 1/2 gallon of milk in weight -SCDs while in bed Diet/Bowel: -General diet -Daily stool softeners to prevent constipation DVT (p): -LMWH currently contraindicated Dispo planning: - likely home when meeting criteria, possible tomorrow Nahum Peralta MD Neurosurgery, PGY-4 7:39 AM 02/16/2019 documented in this encou nter Plan of Treatment +--------+---------+ + + + | Date | Type | Specialty | Care Team | Description | +--------+---------+ + + + | 03/15/ | Office | Neurological Surgery | Sukumar Almanza, | | | 2018 | Visit | | [facility] [address] | | | | | | [place] | | | | | | [address] | | | | | | | [...] | + +--------+ + + + | ANTERIOR LUMBAR | Electi | 02/15/2019 [...] lumbar discectomy | | + +--------+ + + + +---+--------+ | | | | | Specia | | | l | | | Needs | | | | | | Please | | | note | | | Dr. | | | Saurabh | | | will | | | be | | | cosurg | | | gaby | +---+--------+ + +--------+ +---+ + | HCG URINE, POC IP | Routin | 02/15/2019 | | Results for this | | ONLY | e | 6:42 AM | | procedure are in the | | | | PDT | | results section. | + +--------+ +---+ + | CARDIOLOGY | | 02/15/2019 | | Results for this | | | | 12:00 AM | | procedure are in the | | | | PDT | | results section. | + +--------+ +---+ + documented in this encounter Results GLUCOSE, POC (02/16/2019 5:21 AM PDT) [...] RADIOLOGY | [address] | [place] [address] | [phone] | + + + + + X-RAY [...] RADIOLOGY | [address] | [place] [address] | [phone] | | VOICE RECOGNITION | | | [...] + + | LOT # - | [id number] | | TUALITY | | | URINE [...] | + + + + + | [facility] | [address] | [place] [address] | [phone] | + + + + + CARDIOLOGY (02/15/2019 12:00 AM PDT) + + + | Narrative | Performed At | + + + | | | + + + documented in this encounter Visit Diagnoses Not on filedocumented in this encounter Administered Medications + +--------+ + +------+------+ | Medication Order | MAR | Action | Dose | Rate | Site | | | Action | Date | | | | + +--------+ + +------+------+ | acetaminophen (TYLENOL) tablet | Given | 02/18/20 | 1,000 mg | | | | 1,000 mg 1,000 mg, oral, EVERY 6 | | 19 8:45 | | | | | HOURS, First dose on Fri02/15/19 | | AM PDT | | | | | at 1600, Until Discontinued | | | | | | + +--------+ + +------+------+ +-------+ + +---+---+ | Given | 02/18/20 | 1,000 mg | | | | | 19 4:03 | | | | | | AM PDT | | | | +-------+ + +---+---+ | Given | 02/17/20 | 1,000 mg | | | | | 19 4:30 | | | | | | PM PDT | | | | +-------+ + +---+---+ +---+---+ | | | +---+---+ + +-------+ +---------+---+ + | bacitracin (BACIIM) injection | Given | 02/16/20 | 50,000 | | Surgical | | INTRAPROCEDURE PRN, Starting Mon | | 19 8:12 | Units | | Site | | 02/15/19 at 0812, Until Mon | | AM PDT | | | | | 02/15/19 at 1146 | | | | | | + +-------+ +---------+---+ + +---+---+ | | | +---+---+ + +-------+ +-------+---+ + | bupivacaine-EPINEPHrine | Given | 02/16/20 | 30 mL | | Surgical | | (MARCAINE-EPINEPHRINE) 0.5 | | 19 10:04 | | | Site | | %-1:200,000 injection | | AM PDT | | | | | INTRAPROCEDURE PRN, Starting Mon | | | | | | | 02/15/19 at 1004, Until Mon | | | | | | | 02/15/19 at 1146 | | | | | | + +-------+ +-------+---+ + +---+---+ | | | +---+---+ + +-------+ +--------+---+---+ | buPROPion SR (WELLBUTRIN-SR, | Given | 02/18/20 | 150 mg | | | | ZYBAN) tablet 150 mg 150 mg, | | 19 8:45 | | | | | oral, DAILY, First dose on Fri | | AM PDT | | | | | 02/16/19 at 0900, Until | | | | | | | Discontinued | | | | | | + +-------+ +--------+---+---+ +-------+ +--------+---+---+ | Given | 02/17/20 | 150 mg | | | | | 19 8:13 | | | | | | AM PDT | | | | +-------+ +--------+---+---+ +---+---+ | | | +---+---+ + +-------+ +--------+---+---+ | HYDROmorphone (DILAUDID) | Given | 02/16/20 | 0.5 mg | | | | injection 0.2-0.6 mg 0.2-0.6 mg, | | 19 3:49 | | | | | intravenous, EVERY 2 HOURS | | PM PDT | | | | | NEEDED, Starting 02/15/19 at | | | | | | | 1359, Until Fri02/17/19 at 2136, | | | | | | | severe pain | | | | | | + +-------+ +--------+---+---+ +---+---+ | | | +---+---+ + +-------+ +--------+---+---+ | methocarbamol (ROBAXIN) tablet | Given | 02/18/20 | 500 mg | | | | 500 mg 500 mg, oral, THREE TIMES | | 19 1:30 | | | | | DAILY NEEDED, Starting Mon | | PM PDT | | | | | 02/15/19 at 1359, Until Wed | | | | | | | 02/17/19 at 2136, muscle spasms | | | | | | + +-------+ +--------+---+---+ +-------+ +--------+---+---+ | Given | 02/18/20 | 500 mg | | | | | 19 4:03 | | | | | | AM PDT | | | | +-------+ +--------+---+---+ | Given | 02/17/20 | 500 mg | | | | | 19 4:30 | | | | | | PM PDT | | | | +-------+ +--------+---+---+ +---+---+ | | | +---+---+ + +-------+ +------+---+---+ | metoclopramide HCl (REGLAN) | Given | 02/16/20 | 5 mg | | | | injection 5-10 mg 5-10 mg, | | 19 3:33 | | | | | intravenous, EVERY 4 HOURS | | PM PDT | | | | | NEEDED, Starting Fri02/15/19 at | | | | | | | 1359, Until Fri02/17/19 at 2136, | | | | | | | unresponsive to ondansetron | | | | | | | (ZOFRAN) and unable to take oral | | | | | | | metoclopramide. | | | | | | + +-------+ +------+---+---+ +---+---+ | | | +---+---+ + +-------+ + +---+ + | NaCl 0.9 % irrigation | Given | 02/16/20 | 1,000 mL | | Surgical | | INTRAPROCEDURE PRN, Starting Mon | | 19 8:13 | | | Site | | 02/15/19 at 0813, Until Mon | | AM PDT | | | | | 02/15/19 at 1146 | | | | | | + +-------+ + +---+ + +---+---+ | | | +---+---+ + +-------+ +------+---+---+ | ondansetron ODT (ZOFRAN ODT) | Given | 02/17/20 | 8 mg | | | | tablet 8 mg 8 mg, oral, EVERY 8 | | 19 5:06 | | | | | HOURS NEEDED, Starting Mon | | PM PDT | | | | | 02/15/19 at 1359, Until Wed | | | | | | | 02/17/19 at 2136, nausea/vomiting, | | | | | | | first line | | | | | | + +-------+ +------+---+---+ +---+---+ | | | +---+---+ + +-------+ +-------+---+---+ | oxyCODONE (immediate release) | Given | 02/18/20 | 10 mg | | | | (ROXICODONE) tablet 5-10 mg 5-10 | | 19 1:30 | | | | | mg, oral, EVERY 3 HOURS | | PM PDT | | | | | NEEDED, Starting Fri02/15/19 at | | | | | | | 1359, Until Fri02/17/19 at 2136, | | | | | | | moderate pain | | | | | | + +-------+ +-------+---+---+ +-------+ +-------+---+---+ | Given | 02/18/20 | 10 mg | | | | | 19 10:37 | | | | | | AM PDT | | | | +-------+ +-------+---+---+ | Given | 02/18/20 | 10 mg | | | | | 19 7:09 | | | | | | AM PDT | | | | +-------+ +-------+---+---+ +---+---+ | | | +---+---+ + +-------+ +------+---+---+ | polyethylene glycol (MIRALAX) | Given | 02/18/20 | 17 g | | | | packet 17 g 17 g, oral, DAILY, | | 19 8:45 | | | | | First dose on Fri02/15/19 at | | AM PDT | | | | | 1400, Until Discontinued | | | | | | + +-------+ +------+---+---+ +-------+ +------+---+---+ | Given | 02/17/20 | 17 g | | | | | 19 8:13 | | | | | | AM PDT | | | | +-------+ +------+---+---+ | Given | 02/16/20 | 17 g | | | | | 19 3:57 | | | | | | PM PDT | | | | +-------+ +------+---+---+ +---+---+ | | | +---+---+ + +-------+ +---------+---+---+ | senna-docusate (SENOKOT S) | Given | 02/18/20 | 2 | | | | 8.6-50 mg 2 tablet 2 tablet, | | 19 8:45 | tablets | | | | oral, TWICE DAILY, First dose on | | AM PDT | | | | | Fri02/15/19 at 1400, Until | | | | | | | Discontinued | | | | | | + +-------+ +---------+---+---+ +-------+ +---------+---+---+ | Given | 02/17/20 | 2 | | | | | 19 8:58 | tablets | | | | | PM PDT | | | | +-------+ +---------+---+---+ | Given | 02/17/20 | 2 | | | | | 19 8:13 | tablets | | | | | AM PDT | | | | +-------+ +---------+---+---+ +---+---+ | | | +---+---+ documented in this encounter
--- OUTSIDE RECORDS SUMMARY | ~2019-03-02 | XMS | Encounter Summary ---
Demographics + + + | Address | [address] | | | [place] [address] | + + + | Home Phone | | + + + | Preferred Language | Unknown | + + + | Marital Status | Single | + + + | Congregation Affiliation | NRP | + + + [...] Team Providers + +------+ + | Care Bail Attacher Name | Role | Phone | + [...] + + | 02/15/ | Hospital | [facility]urg 5 | Ethan Roach MD | | | 2019 - | Encounter | [address] | [address] | | | | | [place] [address] | [address] | | | 02/17/ | | [phone] | [place] [address] | | | 2018 | | | [phone] | | +--------+ + + + + [...] + + | Height | 180.3 cm (") | 02/15/2019 6:14 AM | | | [...] PA-C - 02/17/2019 3:36 PM PDT [facility] Discharge Summary Admit Date: 02/15/2019 Discharge Date: [...] -No forward bending to the floor to pickup driver objects -Keep head above the level of [...] NOT RESTART THESE MEDICATIONS UNTIL CLEARED BY [facility]. Activity: -Activity instructions: no strenuous exercise, no bending/twisting, lifting restricted to < 1/2 gallon of milk in weight. -No forward bending to the floor to pickup driver objects -Keep head above the level of [...] 1:30 pm Office Address: Ethan Roach MD [facility] Neurosurgery [address], [address] [place] [address] [id number] Follow Up: Future Appointments Provider Department Dept Phone Center 03/15/2019 1:45 PM Sukumar Almanza [facility] Neurosurgery at [facility] [phone] [facility] Neurosur Schedule the following appointment(s) when you get home Sanaz Carney PA-C . Specialty: Physician Agriculture Teacher Contact information [facility] [address] [facility] [address] Sukumar Almanza PA-C [facility] Neurosurgery [phone] documented in this encounter Discharge Instructions Discharge Instr - AVS First Page Sukumar Almanza PA-C - 02/16/2019 4:05 PM PDTNeurosurge ry Follow-up -follow-up in 4 weeks for follow-up 03/15/2019 @ 1:30 pm Office Address: Ethan Roach MD [facility] Neurosurgery [address], [address] [place] [address] Discharge Instr - Activity Sukumar Almanza PA-C - 02/16/2019 4:07 PM PDTActivity: -Activity instructions: no strenuous exercise, no bending/twisting, lifting restricted to < 1/2 gallon of milk in weight. -No forward bending to the floor to pickup driver objects -Keep head above the level of [...] Almanza PA-C - 02/17/2019 1:16 PM PDTFormattin g of this note might be different from [...] NOT RESTART THESE MEDICATIONS UNTIL CLEARED BY [facility]. Activity: -Activity instructions: no strenuous exercise, no bending/twisting, lifting restricted to < 1/2 gallon of milk in weight. -No forward bending to the floor to pickup driver objects -Keep head above the level of [...] 1:30 pm Office Address: Ethan Roach MD [facility] [address], [address] [place], [place] [address] documented in this encounter Medications at Time [...] Dispo planning: - Home today Lizeth Montoya MSW,JABARI - 02/17/2019 3:17 PM PDTCare Management Discharge Planning Note: Plan Discharge date/time: 02/17/19/tbgaldino Recommendations for d/c:home with assist (prn) (ie, SNF, ICF, AFH, HH, Equip., etc, per Therapy/ MD/RN) Discharge destination: home, [place] Transportation (mode/via):family will transport/private vehicle Patient Support/Family Contact (name & #):Miguel Aben Arzate (partner) [phone] Potential Barriers to discharge (ie needing study, procedure, equip at home, lower level B G or HR, needs BM, etc): none identified Communication: no coordination required on behalf of pt. MURALI Rai,JABARI Efraín Montoya MSW, CSWA - 02/17/2019 3:12 [...] Available: family or friend will provide Insurance/Funding: [facility] Assessment: met with pt and pt's partner [...] ready to d/c back to home in [place], [place]. Anticipated Discharge Needs: Anticipated Discharge Disposition: [...] [address] | | | | | | [place] | | | | | | [address] | | | | | | | [...] | | | note | | | DrAbdoul | | | Saurabh | | | [...] RADIOLOGY | [address] | [place] [address] | [phone] | + + + + + X-RAY [...] RADIOLOGY | [address] | [place] [address] | [phone] | | VOICE RECOGNITION | | | [...] + + | LOT # - | [id number] | | TUALITY | | | URINE [...] + + + + + | [facility] [place] | [address] | [facility] [address] | [phone] | + + + + + CARDIOLOGY (02/15/2019 12:00 AM PDT) + + + | Narrative | Performed At | + + + | | | + + + documented in this encounter Visit Diagnoses + + | Diagnosis | + + | Spinal stenosis of lumbar region without neurogenic claudication - Primary Spinal | | stenosis, lumbar region, without neurogenic claudication | + + | S/P lumbar discectomy x 2 Other postprocedural status | + + | Lumbar degenerative disc disease Degeneration of lumbar or lumbosacral intervertebral | | disc | + + | Lumbar radiculopathy, right | + + | Left lumbar radiculopathy Thoracic or lumbosacral neuritis or radiculitis, | | unspecified | + + | Lumbar disc herniation Displacement of lumbar intervertebral disc without myelopathy | + + documented in this encounter Administered Medications + +--------+ + +------+------+ | Medication Order | MAR | Action | Dose | Rate | Site | | | Action | Date | | | | + +--------+ + +------+------+ | acetaminophen (TYLENOL) tablet | Given | 02/16/20 | 1,000 mg | | | | 1,000 mg 1,000 mg, oral, | | 19 6:32 | | | | | PREPROCEDURE ONCE, 1 dose, | | AM PDT | | | | | Starting Fri02/15/19 at 0617, | | | | | | | Until Fri02/15/19 at 0632 | | | | | | + +--------+ + +------+------+ +---+---+ | | | +---+---+ + +-------+ + +---+---+ | acetaminophen (TYLENOL) tablet | Given | 02/18/20 | 1,000 mg | | | | 1,000 mg 1,000 mg, oral, EVERY 6 | | 19 8:45 | | | | | HOURS, First dose on Fri02/15/19 | | AM PDT | | | | | at 1600, Until Discontinued | | | | | | + +-------+ + +---+---+ +-------+ + +---+---+ | Given | 02/18/20 [...] +--------+---+---+ +---+---+ | | | +---+---+ + +---------+ +-----+---+---+ | ceFAZolin IV 3 gram in 0.9% | New Bag | 02/17/20 | 3 g | | | | sodium chloride 3 g, | | 19 12:36 | | | | | intravenous, EVERY 8 HOURS, 2 | | AM PDT | | | | | doses, First dose on Fri02/15/19 | | | | | | | at 1600, Last dose on Fri02/16/19 | | | | | | | at 0000 | | | | | | + +---------+ +-----+---+---+ +---------+ +-----+---+---+ | New Bag | 02/16/20 | 3 g | | | | | 19 3:51 | | | | | | PM PDT | | | | +---------+ +-----+---+---+ +---+---+ | | | +---+---+ + +-------+ +--------+---+---+ | fentaNYL (SUBLIMAZE) injection | Given | 02/16/20 | 25 mcg | | | | 25 mcg 25 mcg, intravenous, | | 19 12:55 | | | | | RECOVERY PRN (TUA), 8 doses, | | PM PDT | | | | | Starting Fri02/15/19 at 1122, | | | | | | | Until Fri02/15/19 at 1359, severe | | | | | | | pain while in Phase I Recovery | | | | | | + +-------+ +--------+---+---+ +-------+ +--------+---+---+ | Given | 02/16/20 | 25 mcg | | | | | 19 12:51 | | | | | | PM PDT | | | | +-------+ +--------+---+---+ | Given | 02/16/20 | 25 mcg | | | | | 19 12:26 | | | | | | PM PDT | | | | +-------+ +--------+---+---+ +---+---+ | | | +---+---+ + +-------+ +--------+---+---+ | gabapentin (NEURONTIN) capsule | Given | 02/16/20 | 300 mg | | | | 300 mg 300 mg, oral, | | 19 6:32 | | | | | PREPROCEDURE ONCE, 1 dose, | | AM PDT | | | | | Starting Fri02/15/19 at 0617, | | | | | | | Until Fri02/15/19 at 0632 | | | | | | + +-------+ +--------+---+---+ +---+---+ | | | +---+---+ + +-------+ +--------+---+---+ | HYDROmorphone (DILAUDID) | Given | 02/16/20 | 0.5 mg | | | | injection 0.2-0.5 mg 0.2-0.5 mg, | | 19 12:16 | | | | | intravenous, RECOVERY PRN (CELE), | | PM PDT | | | | | Starting Fri02/15/19 at 1122, | | | | | | | Until Fri02/15/19 at 1359, | | | | | | | moderate pain while in Phase I | | | | | | | Recovery | | | | | | + [...] +--------+---+---+ +---+---+ | | | +---+---+ + + [...] | 4 mg | | | | 4 mg 4 mg, intravenous, ONCE, 1 | | 19 6:10 | | | | | dose, 02/15/19 at 1830 | | PM PDT | | | | + +-------+ +------+---+---+ [...] | | +---+---+ + +-------+ +---------+---+---+ | promethazine (PHENERGAN) | Given | 02/16/20 | 6.25 mg | | | | injection 6.25-12.5 mg 6.25-12.5 | | 19 1:30 | | | | | mg, intravenous, POSTPROCEDURE | | PM PDT | | | | | PRN, 1 dose, Starting Fri02/15/19 | | | | | | | at 1122, Until 02/15/19 at | | | | | | | 1330, nausea/vomiting, 1st line | | | | | | + +-------+ +---------+---+---+ +---+---+ | | | +---+---+ + +-------+ +---------+---+---+ | senna-docusate (SENOKOT S) | Given | 02/18/20 | 2 | | | | 8.6-50 mg 2 tablet 2 tablet, | | 19 8:45 | tablets | | | | oral, TWICE DAILY, First dose on | | AM PDT | | | | | 02/15/19 at 1400, Until | | | | [...] +---------+---+---+ +---+---+ | | | +---+---+ + +---------+ + + +---+ | sodium chloride 0.9 % (NS) IV | New Bag | 02/16/20 | 75 mL/hr | 75 mL/hr | | | infusion 75 mL/hr, intravenous, | | 19 3:10 | | | | | CONTINUOUS, Starting 02/15/19 | | PM PDT | | | | | at 1400, Until Fri02/15/19 at | | | | | | | 1859 | | | | | | + +---------+ + + +---+ +---+---+ | | | +---+---+ documented in this encounter
--- OUTSIDE RECORDS SUMMARY | ~2019-03-02 | XMS | Encounter Summary ---
Demographics + + + | Address | [address] | | | [place] [address] | + + + | Home Phone | | + + + | Preferred Language | Unknown | + + + | Marital Status | Single | + + + | Pentecostal Affiliation | NRP | + + + | Race | White | + + + | Ethnic Group | Not or | + + + Author + + + | Author | [facility] | + + + | Organization | [facility] | + + + | Address | Unknown | + + + | Phone | Unavailable | + + + Support + + +---------+ + | Name | Relationship | Address | Phone | + + +---------+ + | Lester Wells | ECON | Unknown | | + + +---------+ + Care Team Providers + +------+ + | Care Front End Developer Javascript Html Css Name | Role | Phone | + +------+ + | Sanaz Carney PA-C | PCP | | + +------+ + Encounter Details +--------+ + + + + | Date | Type | Department | Care Team | Description | +--------+ + + + + | 02/17/ | Pharmacy | [facility] | | | | 2019 | Visit | & [facility] | | | | | | [address] | | | | | | Mailcode: Marshall | | | | | | [facility] | | | | | | Healing, [address] | | | | | | [place], [place] | | | | | | [address] | | | | | | [phone] | | | +--------+ + + + [...] [address] | | | | | | [place] | | | | | | [address] | | | | | | | | +--------+---------+ + + + documented as of this encounter Visit Diagnoses Not on filedocumented in this encounter"
--- OUTSIDE RECORDS SUMMARY | ~2019-03-02 | XMS | Encounter Summary ---
Demographics + + + | Address | [address] | | | [place] [address] | + + + | Home Phone | | + + + | Preferred Language | Unknown | + + + | Marital Status | Single | + + + | Yazidism Affiliation | NRP | + + + [...] Team Providers + +------+ + | Care Wood Block Artist Name | Role | Phone | + [...] + + | 02/15/ | Hospital | [facility] Med Surg 5 | Ethan Roach MD | | | 2019 - | Encounter | [address] | [address] | | | | | [place] [address] | [address] | | | 02/17/ | | [phone] | [place] [address] | | | 2018 | | | [phone] | | +--------+ + + + + [...] PA-C - 02/17/2019 3:36 PM PDT [facility] Discharge Summary Admit Date: 02/15/2019 Discharge Date: [...] -No forward bending to the floor to hand picker objects -Keep head above the level of [...] NOT RESTART THESE MEDICATIONS UNTIL CLEARED BY [facility] NEUROSURGERY. Activity: -Activity instructions: no strenuous exercise, no bending/twisting, lifting restricted to < 1/2 gallon of milk in weight. -No forward bending to the floor to hand picker objects -Keep head above the level of [...] 1:30 pm Office Address: Ethan Roach MD [facility] Neurosurgery [address], [address] [place] [id number] Follow Up: Future Appointments Provider Department Dept Phone Center 03/15/2019 1:45 PM Sukumar Almanza [facility] Neurosurgery at [facility] [phone] [facility] Neurosur Schedule the following appointment(s) when you get home Sanaz Carney PA-C . Specialty: Physician Strategic Planning Specialist Contact information On License [facility] [address] [facility] [address] Sukumar Almanza PA-C [facility] Neurosurgery [phone] documented in this encounter Discharge Instructions Discharge Instr - AVS First Page Sukumar Almanza PA-C - 02/16/2019 4:05 PM PDTNeurosurge ry Follow-up -follow-up in 4 weeks for follow-up 03/15/2019 @ 1:30 pm Office Address: Ethan Roach MD [facility] Neurosurgery [address], [address] [place] [address] Discharge Instr - Activity Sukumar Almanza PA-C - 02/16/2019 4:07 PM PDTActivity: -Activity instructions: no strenuous exercise, no bending/twisting, lifting restricted to < 1/2 gallon of milk in weight. -No forward bending to the floor to hand picker objects -Keep head above the level of [...] NOT RESTART THESE MEDICATIONS UNTIL CLEARED BY [facility] NEUROS[facility]ERY. Activity: -Activity instructions: no strenuous exercise, no bending/twisting, lifting restricted to < 1/2 gallon of milk in weight. -No forward bending to the floor to hand picker objects -Keep head above the level of [...] 1:30 pm Office Address: Ethan Roach MD [facility] Clinic [address], [address] [place], [place] [address] documented in this encounter Medications at Time [...] etc, per Therapy/ MD/RN) Discharge destination: home, [place] Transportation (mode/via):family will transport/private vehicle Patient Support/Family Contact (name & #):Miguel Aben Arzate (partner) [phone] Potential Barriers to discharge (ie needing study, [...] Available: family or friend will provide Insurance/Funding: [facility] Assessment: met with pt and pt's partner [...] ready to d/c back to home in [place], [place]. Anticipated Discharge Needs: Anticipated Discharge Disposition: [...] [address] | | | | | | [place] | | | | | | [address] | | | | | | | [...] RADIOLOGY | [address] | [place] [address] | [phone] | + + + + + X-RAY [...] RADIOLOGY | [address] | [place] [address] | [phone] | | VOICE RECOGNITION | | | [...] + + | LOT # - | [id number] | | TUALITY | | | URINE [...] [place] | [address] | [place] [address] | [phone] | + + + + + CARDIOLOGY [...]
--- OUTSIDE RECORDS SUMMARY | ~2019-03-02 | XMS | Encounter Summary ---
Demographics + + + | Address | [address] | | | [place] [address] | + + + | Home Phone | | + + + | Preferred Language | Unknown | + + + | Marital Status | Single | + + + | Catholic Affiliation | NRP | + + [...] Team Providers + +------+ + | Care Conductor Road Freight Name | Role | Phone | + [...] | | | | Left lumbar | [facility] [address] | | | | | radiculopath | [place] [address] | [place], [place] | | | | | y Lumbar | Phone: | [phone] | | | | | degenerative | [phone] | Phone: | | | | | disc | | [phone] | | | | | disease | | Fax: | | | | | Spinal | | [phone] | | | | | stenosis of [...] | | | | | | | BOTTOM WHEELER | | | | | | | [place] LUMBAR | | | | | | | SPINE | | | | | | | FUSION,ANTER | | | | | | | APPRCH [place] | | | | | | | INSERT | | | | | | | INTERBODY | | | | | | | BIOMECH | | | | | | | DEV,TO | | | | | | | INTERVERTEBR | | | | | | | AL DISC | | | | | | | SPACE WA | | | | | | | LAMINEC/FACE | | | | | | | TECT/FORAMIN | | | | | | | ,LUMBAR [place] | | | | | | | REDO EXCIS | | | | | | | LUMBAR DISK | | | | | | | [place] SPIN | | | | | | [...] | | | | al disc | [facility] | [address] | | | | | disorders | & Fractur | [address] | | | | | with | [address] | [place] | | | | | radiculopath | [address] | [address] | | | | | y, lumbar | [place], | Phone: | | | | | region | [place] [address] | [phone] | | | | | 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 Ethan Roach MD [facility] Neurosurgery Clinic [address] [address] NEUROSURGERY HISTORY AND PHYSICAL EXAMINATION CHIEF COMPLAINT: [...] Date Lumbar discectomy 06/2015 L5-S[address] [facility] in [facility] Back surgery CURRENT MEDICATIONS: Current Outpatient Medications [...] apparent deficits with short or termite control representative memory. CRANIAL NERVES: II: Acuity is [...] Intrinsics 5 5 Ulnar Intrinsics 5 5 Chief Clerk Strength 5 5 Hip Flexion 5 5 [...] [address] | | | | | | [place], [place] | | | | | | [address] | | | | | | | [...]
--- OUTSIDE RECORDS SUMMARY | ~2019-03-02 | XMS | Encounter Summary ---
Demographics + + + | Address | [address] | | | [place] [address] | + + + | Home Phone | | + + + | Preferred Language | Unknown | + + + | Marital Status | Single | + + + | Evangelical Affiliation | NRP | + + + [...] Team Providers + +------+ + | Care Leather Products Supervisor Name | Role | Phone | [...] Ave | | | | | Ave [place], [place] | [place] [address] | | | | | [address] | | | +--------+ + + + [...] Marbella; 16 Fr.; 10 mL; 02/15/19; | Yolanda Herrera RN | Yolanda [...] López | | | | | | [place], [place] | | | | | | [address] | | | | | | | [...]
--- OUTSIDE RECORDS SUMMARY | ~2019-03-02 | XMS | Encounter Summary ---
Demographics + + + | Address | [address] | | | [place] [address] | + + + | Home Phone [...] Team Providers + +------+ + | Care Telephone Assembler Name | Role | Phone | + +------+ + | Sanaz Carney PA-C PCP | | + +------+ + Encounter Details +--------+--------+ + + + | Date | Type | Department | Care Team | Description | +--------+--------+ + + + | 02/15/ | Travel [...] Maribel | | | | | | [place] | | | | | | [address] | | | | | | | | +--------+---------+ + + + documented as of this encounter Visit Diagnoses Not on filedocumented in this encounter"
--- OUTSIDE RECORDS SUMMARY | ~2019-03-02 | XMS | Encounter Summary ---
Demographics + + + | Address | [address] | | | [place] [address] | + + + | Home Phone [...] Team Providers + +------+ + | Care Cnc Mill And Lathe Operator Name | Role | Phone | [...] | | [address] | [place], [place] | | | | | [facility] [address] | [address] | | | | | [place], [place] | | | | | | [address] | | | | | | [phone] | | | +--------+ + + + [...] Maribel | | | | | | [place] | | | | | | [address] | | | | | | | | +--------+---------+ + + + documented as of this encounter Visit Diagnoses Not on filedocumented in this encounter"
--- OUTSIDE RECORDS SUMMARY | ~2019-03-02 | XMS | Encounter Summary ---
Demographics + + + | Address | [address] | | | [place] [address] | + + + | Home Phone | | + + + | Preferred Language | Unknown | + + + | Marital Status | Single | + + + | Jew Affiliation | NRP | + + + [...] Team Providers + +------+ + | Care Single Stroke Preformer Name | Role | Phone | + [...] [place] | | | | | | [address] | | | | | | | | +--------+---------+ + + + documented as of this encounter Visit Diagnoses Not on filedocumented in this encounter"
--- OUTSIDE RECORDS SUMMARY | ~2019-03-02 | XMS | Encounter Summary ---
Demographics + + + | Address | [address] | | | [place] [address] | + + + | Home Phone | | + + + | Preferred Language | Unknown | + + + | Marital Status | Single | + + + | Mormon Affiliation | NRP | + + + [...] Team Providers + +------+ + | Care Mold Loft Worker Name | Role | Phone | + [...] | | | | [address] | [place] [address] | | | | | [place], [place] | [phone] | | | | | [address] | | | | | | [phone] | | | +--------+ + + + [...] 2018 | Visit | | K[address]STYNA [address] [facility] [address] | | | | | | [place], [place] | | | | | | [address] | | | | | | | [...]
--- OUTSIDE RECORDS SUMMARY | ~2019-03-02 | XMS | Encounter Summary ---
Demographics + + + | Address | [address] | | | [place] [address] | + + + | Home Phone | | + + + | Preferred Language | Unknown | + + + | Marital Status | Single | + + + | Sikhism Affiliation | NRP | + + + [...] Team Providers + +------+ + | Care Loop Drier Operator Name | Role | Phone | + +------+ + | Sanaz Carney PA-C | PCP | | + +------+ + Encounter Details +--------+ + + + + | Date | Type | Department | Care Team | Description | +--------+ + + + + | 03/02/ | Telephone | [facility] | Ethan Roach MD | | | 2019 | | Neurosurgery at 7th | [address] | | | | | [address] | [address] | | | | | [address] | [place] [address] | | | | | [place], [place] | [phone] | | | | | [address] | | | | | | [phone] | | | +--------+ + + + [...] López | | | | | | [place], [place] | | | | | | [address] | | | | | | | | +--------+---------+ + + + documented as of this encounter Visit Diagnoses + + | Diagnosis | + + | Left lumbar radiculopathy - Primary Thoracic or lumbosacral neuritis or radiculitis, | | unspecified | + + documented in this encounter"
--- OUTSIDE RECORDS SUMMARY | ~2019-03-02 | XMS | Encounter Summary ---
Demographics + + + | Address | [address] | | | [place] [address] | + + + | Home Phone [...] Team Providers + +------+ + | Care Pickling Tank Operator Name | Role | Phone | + +------+ + | No Pcp Per Patient | PCP | Unavailable | + +------+ + Encounter Details +--------+ + + + + | Date | Type | Department | Care Team | Description | +--------+ + + + + | 12/29/ | Hospital | Diagnostic Imaging | Ginna Marcos | | | 2019 | Encounter | at [facility] | [place], KRYSTYNA [address] [facility] | | | | | Healthcare [address] [facility] | | | | | [address]th [place], | [place] [address] | | | | | [place] [address] | [phone] | | | | | [phone] | | | +--------+ + + + [...] + + documented as of this encounter Medications at Time of Discharge [...] López | | | | | | [place] | | | | | | [address] | | | | | | | [...] | | + +--------+ + + + documented in this encounter Results X-RAY SPINE LUMBOSACRAL 4 [...] + + | Performing | Address | City/State[facility] | Phone Number | | Organization | | | | + + + + + | [facility] | [address] | [place] [address] | [phone] | | VOICE RECOGNITION | | | | + + + + + documented in this encounter Visit Diagnoses + + | Diagnosis | + + | Back pain, unspecified back location, unspecified back pain laterality, unspecified | | chronicity | + + documented in this encounter"
--- OUTSIDE RECORDS SUMMARY | ~2019-03-02 | XMS | Encounter Summary ---
Demographics + + + | Address | [address] | | | [place] [address] | + + + | Home Phone | | + + + | Preferred Language | Unknown | + + + | Marital Status | Single | + + + | Hoahaoism Affiliation | NRP | + + + [...] Team Providers + +------+ + | Care Coremaker Name | Role | Phone | + +------+ + PCP | Unavailable | + +------+ + Encounter Details +--------+ + + + + | Date | Type | Department | Care Team | Description | +--------+ + + + + | 06/12/ | Document-Sc | [facility] | Ethan Roach MD | | | 2019 | anned | Neurosurgery at 7th | [address] | | | | | [address] | [address] | | | | | [address] | [place] [address] | | | | | [place], [place] | [phone] | | | | | [address] | | | | | | [phone] | | | +--------+ + + + [...] López | | | | | | [place], [place] | | | | | | [address] | | | | | | | | +--------+---------+ + + + documented as of this encounter Visit Diagnoses Not on filedocumented in this encounter"
--- OUTSIDE RECORDS SUMMARY | ~2019-03-02 | XMS | Encounter Summary ---
Demographics + + + | Address | [address] | | | [place] [address] | + + + | Home Phone | | + + + | Preferred Language | Unknown | + + + | Marital Status | Single | + + + | Zoroastrian Affiliation | NRP | + + + [...] Team Providers + +------+ + | Care Acid Washer Operator Name | Role | Phone | [...] Maribel | | | | | | [place] | | | | | | [address] | | | | | | | | +--------+---------+ + + + documented as of this encounter Visit Diagnoses Not on filedocumented in this encounter"
--- OUTSIDE RECORDS SUMMARY | ~2019-03-02 | XMS | Encounter Summary ---
Demographics + + + | Address | [address] | | | [place] [address] | + + + | Home Phone | | + + + | Preferred Language | Unknown | + + + | Marital Status | Single | + + + | Sikh Affiliation | NRP | + + + [...] Team Providers + +------+ + | Care Press Tender Short Goods Name | Role | Phone | + [...] | INTERBODY | | | | Ave [place], [place] | [address] | FUSION/LEFT L4-5, | | | | [address] | [place] [address] | RIGHT L5-S1 | | | | | [phone] | DECOMPRESSIONS | +--------+---------+ + + + [...] Almanza PA-C - 02/17/2019 3:36 PM PDT [facility] Discharge Summary Admit Date: 02/15/2019 Discharge Date: [...] -No forward bending to the floor to pick remover objects -Keep head above the level of [...] NOT RESTART THESE MEDICATIONS UNTIL CLEARED BY [facility]. Activity: -Activity instructions: no strenuous exercise, no bending/twisting, lifting restricted to < 1/2 gallon of milk in weight. -No forward bending to the floor to pick remover objects -Keep head above the level of [...] 1:30 pm Office Address: Ethan Roach MD [facility] Neurosurgery [address], [address] [place] [address] Follow Up: Future Appointments Provider Department Dept Phone Center 03/15/2019 1:45 PM Sukumar Almanza [facility] Neurosurgery at [facility] [phone] COUNTS INCLUDE 234 BEDS AT THE [facility] Neurosur Schedule the following appointment(s) when you get home Sanaz Carney PA-C . Specialty: Physician Stippler Contact information [facility] [address] Sukumar Almanza PA-C [facility] Neurosurgery [phone] documented in this encounter Discharge Instructions Discharge Instr - AVS First Page Sukumar Almanza PA-C - 02/16/2019 4:05 PM PDTNeurosurge ry Follow-up -follow-up in 4 weeks for follow-up 03/15/2019 @ 1:30 pm Office Address: Ethan Roach MD [facility] Neurosurgery [address], [address] [place] [address] Discharge Instr - Activity Sukumar Almanza PA-C - 02/16/2019 4:07 PM PDTActivity: -Activity instructions: no strenuous exercise, no bending/twisting, lifting restricted to < 1/2 gallon of milk in weight. -No forward bending to the floor to pick remover objects -Keep head above the level of [...] NOT RESTART THESE MEDICATIONS UNTIL CLEARED BY [facility]. Activity: -Activity instructions: no strenuous exercise, no bending/twisting, lifting restricted to < 1/2 gallon of milk in weight. -No forward bending to the floor to pick remover objects -Keep head above the level of [...] 1:30 pm Office Address: Ethan Roach MD [facility] Neurosurgery Clinic [address], [address] [place] [address] documented in this encounter Medications at Time [...] etc, per Therapy/ MD/RN) Discharge destination: home, [place] Transportation (mode/via):family will transport/private vehicle Patient Support/Family Contact (name & #):Miguel A Arzate (partner) [phone] Potential Barriers to discharge (ie needing study, [...] Available: family or friend will provide Insurance/Funding: [facility] Assessment: met with pt and pt's [...] ready to d/c back to home in [place], [place]. Anticipated Discharge Needs: Anticipated Discharge Disposition: [...] Visit | | [address] | | | | | | [place] | | | | | | [address] | | | | | | | [...] RADIOLOGY | [address] | [place] [address] | [phone] | + + + + + X-RAY [...] RADIOLOGY | [address] | [place] [address] | [phone] | | VOICE RECOGNITION | | | [...] + + | LOT # - | [id number] | | [facility] | | | URINE [...] [place] | [address] | [place] [address] | [phone] | + + + + + CARDIOLOGY [...]
--- OUTSIDE RECORDS SUMMARY | ~2019-03-02 | XMS | Encounter Summary ---
Demographics + + + | Address | [address] | | | [place] [address] | + + + | Home Phone [...] Team Providers + +------+ + | Care Manager Life Sciences Name | Role | Phone | + [...] | | | | [address] | [place] [address] | | | | | [place], [place] | [phone] | | | | | [address] | | | | | | [phone] | | | +--------+ + + + [...] López | | | | | | [place], [place] | | | | | | [address] | | | | | | | | +--------+---------+ + + + documented as of this encounter Visit Diagnoses Not on filedocumented in this encounter"
--- OUTSIDE RECORDS SUMMARY | ~2019-03-02 | XMS | Encounter Summary ---
Demographics + + + | Address | [address] | | | [place] [address] | + + + | Home Phone | | + + + | Preferred Language | Unknown | + + + | Marital Status | Single | + + + | Lutheran Affiliation | NRP | + + + [...] Team Providers + +------+ + | Care Electrical Test Engineer Name | Role | Phone | + [...] | | 2019 | Encounter | at [facility] | [place], KRYSTYNA [address] [facility] | | | | | Healthcare [address] [facility] | | | | | [address] [place], | [place] [address] | | | | | [place] [address] | [phone] | | | | | [phone] | | | +--------+ + + + [...] López | | | | | | [place] | | | | | | [address] | | | | | | | [...] + + | Performing | Address | City/State/[facility] | Phone Number | | Organization | | | | + + + + + | [facility] | [address] | [place] [address] | [phone] | | VOICE RECOGNITION | | | | + + + + + documented in this encounter Visit Diagnoses + + | Diagnosis | + + | Back pain, unspecified back location, unspecified back pain laterality, unspecified | | chronicity | + + documented in this encounter"
--- OUTSIDE RECORDS SUMMARY | ~2019-03-02 | XMS | Encounter Summary ---
Demographics + + + | Address | [address] | | | [place] [address] | + + + | Home Phone | | + + + | Preferred Language | Unknown | + + + | Marital Status | Single | + + + | Episcopal Affiliation | NRP | + + + [...] Team Providers + +------+ + | Care High Frequency Mill Operator Name | Role | Phone | [...] | | | | [address] | [place] [address] | | | | | [place], [place] | [phone] | | | | | [address] | | | | | | [phone] | | | +--------+ + + + [...] López | | | | | | [place], [place] | | | | | | [address] | | | | | | | [...]
--- OUTSIDE RECORDS SUMMARY | ~2019-03-02 | XMS | Encounter Summary ---
Demographics + + + | Address | [address] | | | [place] [address] | + + + | Home Phone [...] Team Providers + +------+ + | Care Public Health Engineer Name | Role | Phone | [...] | | | | [address] | [place] [address] | | | | | [place], [place] | [phone] | | | | | [address] | | | | | | [phone] | | | +--------+ + + + [...] López | | | | | | [place], [place] | | | | | | [address] | | | | | | | | +--------+---------+ + + + documented as of this encounter Visit Diagnoses Not on filedocumented in this encounter"
--- OUTSIDE RECORDS SUMMARY | ~2019-03-02 | XMS | Encounter Summary ---
Demographics + + + | Address | [address] | | | [place] [address] | + + + | Home Phone | | + + + | Preferred Language | Unknown | + + + | Marital Status | Single | + + + | Anabaptism Affiliation | NRP | + + + | Race | White | + + + | Ethnic Group | Not or | + + + Author + + + | Author | [facility] | + + + | Organization | [facility] | + + + | Address | Unknown | + + + | Phone | Unavailable | + + + Support + + +---------+ + | Name | Relationship | Address | Phone | + + +---------+ + | Lester Wells | ECON | Unknown | | + + +---------+ + Care Team Providers + +------+ + | Care Market Research Interviewer Name | Role | Phone | + +------+ + | Sanaz Carney PA-C | PCP | | + +------+ + Encounter Details +--------+ + + + + | Date | Type | Department | Care Team | Description | +--------+ + + + + | 02/17/ | Pharmacy | [facility] | | | | 2019 | Visit | & [facility] | | | | | | [address] | | | | | | Mailcode: [place] | | | | | | [facility] and | | | | | | Healing, [address] | | | | | | [place], [place] | | | | | | [address] | | | | | | [phone] | | | +--------+ + + + [...] López | | | | | | [place] | | | | | | [address] | | | | | | | | +--------+---------+ + + + documented as of this encounter Visit Diagnoses Not on filedocumented in this encounter"
--- OUTSIDE RECORDS SUMMARY | ~2019-03-02 | XMS | Clinical Summary ---
Demographics + + + | Address | [address] | | | [place] [address] | + + + | Home Phone [...] Team Providers + +------+ + | Care Canoe Inspector Name | Role | Phone | + +------+ + | Sanaz Carney PA-C | PCP | | + +------+ + Source Comments REGAN is fully live on both [facility] and [facility] InPatient.[facility] Allergies + + + + + [...] + + + + | 12/22/ | Lawn Care Worker | Neurological Surgery | Ginna Marcos | [...] López | | | | | | [place], [place] | | | | | | [address] | | | | | | | [...] | N/A: | | | 02/22/ | [id number] | | [id number] - [id number]: | | Spine | | | 2019 | 0 / | | Qty: 1 on 02/15/2019 by Doc, | | | | | | /[id number] | | Ethan Fitch MD at [facility] IP Rev | | | | | | [id number] | | Location | | | | | | | + +------+-------+ +--------+--------+--------+ | Putty Dbm Maxxeus 10cc 1/ | | N/A: | COMMUNITY | | 10/23/ | 2018- | | - [id number]: Qty: | | Spine | TISSUE BANK | | 2020 | 0 | | 1 on 02/15/2019 by Ethan Roach | | | | | | /[id number] | | MD Little at [facility] IP Rev Location | | | | | | 9-298 | | | | | | | | /[id number] | | | | | | | | 10 | + +------+-------+ +--------+--------+--------+ | Coroent Xlr-F Screw 5.5x25mm | | N/A: | | | | [id number] | | Implanted: Qty: 2 on | | Spine | | | | 5 | | 02/15/2019 by Ethan Roach, | | | | | | /[id number] | | at [facility] IP Rev Location | | | | | | 8 / | + +------+-------+ +--------+--------+--------+ | Brigade Hyperlordotic | | N/A: | | | | [id number] | | [id number] Implanted: | | Spine | | | | 4 | | Qty: 1 on 02/15/2019 by Doc, | | | | | | /[id number] | | Ethan Fitch MD at [facility] IP Rev | | | | | | 9 / | | Location | | | | | | | + +------+-------+ +--------+--------+--------+ | Brigade Plate Screw 6.5x30mm | | N/A: | | | | [id number] | | Implanted: Qty: 4 on | | Spine | | | | 0 | | 02/15/2019 by Ethan Roach, | | | | | | /[id number] | | at [facility] IP Rev Location | | | | | | 0 / | + +------+-------+ +--------+--------+--------+ | Brigade Plare 40 Mm Lordotic | | N/A: | | | | [id number] | | Implanted: Qty: 1 on | | Spine | | | | 0 | | 02/15/2019 by Ethan Roach, | | | | | | /[id number] | | MD at [facility] IP Rev [...] RADIOLOGY | [address] | [place] [address] | [phone] | + + + + + X-RAY [...] RADIOLOGY | [address] | [place] [address] | [phone] | | VOICE RECOGNITION | | | [...] + + | LOT # - | [id number] | | [facility] | | | URINE [...] [address] | [place] [address] | [phone] | + + + + + CARDIOLOGY [...] RADIOLOGY | [address] | [place] [address] | [phone] | | VOICE RECOGNITION | | | [...] | BCBS | [id number] | Effect | [phone] | [address] | PPO | | | [place] | x | patrice | 4 | [place] | | | | IS | | for | | [place], [place] | | | | | | all | | [address] | | | | | | dates [...] | 1984 | [phone] | [place] [address] | | | jackie | | | 5 (Home) | | | | | | [phone] | | | | | | | [...]
--- OUTSIDE RECORDS SUMMARY | ~2019-03-02 | XMS | Encounter Summary ---
Demographics + + + | Address | [address] | | | [place] [address] | + + + | Home Phone | | + + + | Preferred Language | Unknown | + + + | Marital Status | Single | + + + | Adventism Affiliation | NRP | + + + [...] Team Providers + +------+ + | Care Time Piece Repairer Name | Role | Phone | + [...] | | | | [address] | [place] [address] | | | | | [place], [place] | [phone] | | | | | [address] | | | | | | [phone] | | | +--------+ + + + [...] [place] | | | | | | [address] | | | | | | | | +--------+---------+ + + + documented as of this encounter Visit Diagnoses Not on filedocumented in this encounter"
--- OUTSIDE RECORDS SUMMARY | ~2019-03-02 | XMS | Encounter Summary ---
Demographics + + + | Address | [address] | | | [place] [address] | + + + | Home Phone | | + + + | Preferred Language | Unknown | + + + | Marital Status | Single | + + + | Tenriism Affiliation | NRP | + + + [...] Team Providers + +------+ + | Care Clinical Dietetic Technician Name | Role | Phone | [...] | | | | [address] | [place] [address] | | | | | [place], [place] | [phone] | | | | | [address] | | | | | | [phone] | | | +--------+ + + + [...] López | | | | | | [place], [place] | | | | | | [address] | | | | | | | | +--------+---------+ + + + documented as of this encounter Visit Diagnoses + + | Diagnosis | + + | S/P lumbar fusion - Primary Arthrodesis status | + + documented in this encounter"
--- OUTSIDE RECORDS SUMMARY | ~2019-03-02 | XMS | Encounter Summary ---
Demographics + + + | Address | [address] | | | [place] [address] | + + + | Home Phone | | + + + | Preferred Language | Unknown | + + + | Marital Status | Single | + + + | Alevism Affiliation | NRP | + + + [...] Team Providers + +------+ + | Care Lawnmower Mechanic Name | Role | Phone | + [...] | | | | [address] | [place] [address] | | | | | [place], [place] | [phone] | | | | | [address] | | | | | | [phone] | | | +--------+ + + + [...] López | | | | | | [place], [place] | | | | | | [address] | | | | | | | | +--------+---------+ + + + documented as of this encounter Visit Diagnoses + + | Diagnosis | + + | Left lumbar radiculopathy - Primary Thoracic or lumbosacral neuritis or radiculitis, | | unspecified | + + documented in this encounter"
--- OUTSIDE RECORDS SUMMARY | 2019-03-02 17:26 | XMS ---
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 Dalton has no Care Guidelines for this patient. Thomas VISIT COUNT (12 MO.) 1 MALINDA Escal[place] TOTAL 1 NOTE: Visits indicate total known visits. ED/UCC VISIT TRACKING (12 MO.) 03/02/2019 17:23 MALINDA [place] TYPE: Emergency COMPLAINT: - POSSIBLE OUT BLOOD CLOT INPATIENT VISIT TRACKING (12 MO.) [facility] [place] [facility] DIAGNOSES: 72677. Other intervertebral disc displacement, lumbar region 07046. Spinal stenosis, lumbar region without neurogenic claudication 36276. Other specified postprocedural states 19117. Other intervertebral disc degeneration, lumbar region 33993. Radiculopathy, lumbar region [email or web address]
[2019-03-02] MEDS ORDERED: GABAPENTIN300 MG PO (19:49)
[2019-03-02] MEDS ORDERED: BUPROPION HCL150 M2 PO (19:50)
[2019-03-02] MEDS ORDERED: METHOCARBAMOL500 MG PO (19:50)
[2019-03-02] MEDS ORDERED: LISINOPRIL-HCT1 EAC2 PO (19:50)
--- NOTE | 2019-03-03 17:58 | EKG ---
[facility] [address] [facility] [place] [address] Signed Normal sinus rhythm Possible Left atrial enlargement Incomplete right bundle branch block Left ventricular hypertrophy Abnormal ECG When compared with ECG of 27-JAN-2019 14:18, No significant change was found Confirmed by PEDRITO BRYAN MD ([id number]) on 03/03/2019 5:58:37 PM Electronically Signed By: PEDRITO BRYAN MD 03/03/19 1758 PATIENT NAME: MONAE SNELL IGOR Electrocardiogram DATE OF : 81 PHYSICIAN: PEDRITO BRYAN MD REPORT #: [id number] REPORT IS CONFIDENTIAL AND NOT TO BE RELEASED WITHOUT AUTHORIZATION
== END 2019-03-02 20:29 | disposition home or self-care (01) ==
LOC: ED 17:22
DX: R07.9 Chest pain, unspecified (principal); M79.605 Pain in left leg; I10 Essential (primary) hypertension; Z88.2 Allergy status to sulfonamides; Z79.899 Other long term (current) drug therapy
CPT/HCPCS: 71260; 80048; 84484; 84703; 85025; 85379; 93005; 93010; 93971; 99284-25; J2930; Q9967

== ENCOUNTER 2021-03-26 06:44 | Emergency (ER) | payer BC ==
[~2021-03-26] VITALS: Ht 180.3 cm; Wt 137.0 kg
[~2021-03-26 06:44] MED LIST: BUPROPION HCL150 M2 PO; GABAPENTIN300 MG PO; LISINOPRIL-HCT1 EAC2 PO; METHOCARBAMOL500 MG PO
[2021-03-26] MEDS ORDERED: ONDANSETRON ODT4 MG PO (10:04)
== END 2021-03-26 10:12 | disposition home or self-care (01) ==
LOC: ED 06:44
DX: K59.00 Constipation, unspecified (principal); I10 Essential (primary) hypertension; Z88.2 Allergy status to sulfonamides; Z79.899 Other long term (current) drug therapy
CPT/HCPCS: 74018; 74177; 80053; 81001; 83690; 84703; 85025; 99284-25; Q9967